=== PATIENT | male | born 1960 | race Caucasian/White ===

== ENCOUNTER 2016-11-16 19:09 | Emergency (ER) | payer OTHER ==
[2016-11-16 19:20] VITALS: BP 159/98; PULSE 90; TEMP 98.2; BMI 33.2
--- NOTE | 2016-11-16 19:21 | PDOC ---
Rapid Medical Evaluation Time Seen by Provider: 11/16/16 19:19 Medical Evaluation: Allergies Allergy/AdvReac Type Severity Reaction Status Date / Time No Known Allergies Allergy Verified 08/29/15 06:17 11/16/16 19:19 56 year old male IDDM, HTN, chronic back pain presents for refill of insulin. Has not had it for 3 days, but denies any complaints. Does not have insurance so presents here. -V/s unremarkable. -FSBG -To FT for further evaluation
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
[2016-11-16] MEDS ORDERED: INSULIN REGULAR HUMAN 100 UNITS/ML *VIAL SQ ONE (19:58)
[2016-11-16] MEDS ORDERED: traMADol HCL 50 MG TABLET PO ONE (19:59)
[2016-11-16] MEDS ORDERED: INSULIN REGULAR HUMAN 100 UNITS/ML *VIAL ONE (20:15)
[2016-11-16] MEDS ORDERED: INSULIN DETEMIR 100 UNITS/ML MDV SQ ONE ×2 (20:16→20:19)
[2016-11-16] MEDS ORDERED: traMADol HCL 50 MG TABLET ONE (20:28)
== END 2016-11-16 21:02 | disposition home or self-care (01) ==
LOC: JERFT 19:09
PROC: 3E013VG Introduction of Insulin into Subcutaneous Tissue, Percutaneous Approach (ICD-10-PCS; principal; 2016-11-16)
PROC: 3E013VG Introduction of Insulin into Subcutaneous Tissue, Percutaneous Approach (ICD-10-PCS; 2016-11-16)
DX: E11.65 Type 2 diabetes mellitus with hyperglycemia (principal); Z79.4 Long term (current) use of insulin; I10 Essential (primary) hypertension; M54.5 Low back pain; G89.29 Other chronic pain; V43.92XS Unspecified car occupant injured in collision with other type car in traffic accident, sequela
CPT/HCPCS: 99281-25

== ENCOUNTER 2016-11-20 20:18 | Emergency (ER) | payer SELFPAY ==
[2016-11-20 20:34] VITALS: BP 150/84; PULSE 96; TEMP 98.2; BMI 33.9
--- NOTE | 2016-11-20 20:53 | PDOC ---
History of Present Illness - General Chief Complaint: RX Refill Stated Complaint: RX REFILL Time Seen by Provider: 11/20/16 20:35 History Source: Patient - History of Present Illness Timing/Duration: other Associated Symptoms: denies: chest pain, diaphoresis, fever/chills, headaches, malaise, nausea/vomiting, shortness of breath, weakness Past History - Past Medical History Allergies/Adverse Reactions: Allergies Allergy/AdvReac Type Severity Reaction Status Date / Time No Known Allergies Allergy Verified 11/20/16 20:30 Home Medications: Ambulatory Orders Tamsulosin HCl 0.4 mg PO HS 10/25/12 Zolpidem Tartrate [Ambien] 10 mg PO HS 10/25/12 Pantoprazole Sodium [Protonix] 40 mg PO DAILY #30 tablet. 08/29/15 Tramadol HCl [Ultram] 50 mg PO Q6H PRN #15 tablet MDD 4 11/16/16 Insulin Glargine,Hum.rec.anlog [Lantus Solostar PEN -] 20 units SQ BID #10 ml Diabetes: Yes HTN: Yes - Immunization History Immunization Up to Date: Yes - Psycho/Social/Smoking Cessation Hx Anxiety: No Suicidal Ideation: No Smoking Status: No Smoking History: Never smoked Have you smoked in the past 12 months: No Number of Cigarettes Smoked Daily: 0 Hx Alcohol Use: No Drug/Substance Use Hx: No Review of Systems - Review of Systems Constitutional: No: Chills, Fever, Malaise Respiratory: No: Shortness of Breath Cardiac (ROS): No: Chest Pain ABD/GI: No: Nausea, Vomiting : No: Frequency Neurological: No: Headache, Dizziness *Physical Exam - Vital Signs Last Vital Signs Temp Pulse Resp BP Pulse Ox 98.2 F 96 H 18 150/84 97 11/20/16 20:33 11/20/16 20:33 11/20/16 20:33 11/20/16 20:33 11/20/16 20:33 - Physical Exam General Appearance: Yes: Appropriately Dressed. No: Apparent Distress HEENT: positive: Normal Voice Neck: positive: Supple Respiratory/Chest: negative: Respiratory Distress Integumentary: positive: Dry, Warm Neurologic: positive: Fully Oriented, Alert, Normal Mood/Affect Medical Decision Making - Medical Decision Making 11/20/16 20:48 56 yo M, h/o IDDM, HTN, chronic back pain, here for refill of his insulin. Patient was seen in ED 5 days ago for same. Had run out of his insulin 3 days prior. Had not been complaining of any symptoms then, but fingerstick in ED was found to be in the 300s. Patient was given a dose of insulin and told to follow-up with his doctor. Patient states he does have a primary doctor at [facility] but that the issue is that he does not have insurance and the [facility] uses is charging him $400 for medications which he cannot afford. Patient states he was able to speak to a staff member in [facility] located in the [place] and that pharmacist is willing to give patient medication for $100 so patient requesting prescription sent to that pharmacy. States he has a socially responsible investment adviser in the community who is currently assisting him w/ insurance. Patient not complaining of any medical complaints at this time and appears well. Currently talking on his cell phone. Fingerstick in ED is 302. Dc in stable conditions with prescription sent to pharmacy. Pt to continue f/u with his PMD 11/20/16 21:14 11/20/16 21:16 *DC/Admit/Observation/Transfer Diagnosis at time of Disposition: Medication refill - Discharge Dispostion Disposition: HOME Condition at time of disposition: Good - Prescriptions Prescriptions: Insulin Glargine,Hum.rec.anlog [Lantus Solostar PEN -] 20 units SQ BID #10 ml - Patient Instructions Additional Instructions: Please take insulin as prescribed and follow-up with your PMD
[2016-11-20] MEDS ORDERED: INSULIN REGULAR HUMAN 100 UNITS/ML *VIAL SQ ONE (21:17)
[2016-11-20] MEDS ORDERED: INSULIN (NOVOLOG) ASPART 100 UNITS/ML 10ML VIAL ONE (21:25)
[2016-11-21] MEDS ORDERED: Insulin (LOG) Aspart 100 UNITS/ML VIAL SQ ONE (21:23)
== END 2016-11-20 21:43 | disposition home or self-care (01) ==
LOC: JERFT 20:18
DX: Z76.0 Encounter for issue of repeat prescription (principal)
CPT/HCPCS: 99281-25

== ENCOUNTER 2017-07-14 16:44 | Emergency (ER) | payer OTHER ==
[2017-07-14 16:59] VITALS: BP 152/85; PULSE 86; TEMP 98.5; BMI 33.2
--- NOTE | 2017-07-14 17:30 | PDOC ---
History of Present Illness - General Chief Complaint: RX Refill Stated Complaint: RX REFILL Time Seen by Provider: 07/14/17 17:02 History Source: Patient Exam Limitations: No Limitations - History of Present Illness Initial Comments: 07/14/17 17:26 Patient is a 56-year-old male with chronic insomnia, diabetes, hypertension presents emergency department requesting refill for his Ambien. Patient states that he goes to the clinic and his doctors currently on medication he took his last pill last evening and states that he does not feel good if he does not take it has been taken the medication for 15 years. Patient denies any chest pain, no shortness of breath, no other complaints Allergies: No known allergies Medications: See medication list Family History: Non-contributory Social History: Denies smoking, alcohol use, or IVDU Review of Systems GENERAL/CONSTITUTIONAL: [No fever or chills. No weakness. No weight change.] HEAD, EYES, EARS, NOSE AND THROAT: [No change in vision. No ear pain or discharge. No sore throat. ] CARDIOVASCULAR: [No chest pain or shortness of breath.] RESPIRATORY: [No cough, wheezing, or hemoptysis.] GASTROINTESTINAL: [No nausea, vomiting, diarrhea or constipation. No rectal bleeding.] GENITOURINARY: [No dysuria, frequency, or change in urination.] MUSCULOSKELETAL: [No joint or muscle swelling or pain. No neck or back pain.] SKIN : [No rash or easy bruising.] NEUROLOGIC: [No headache, vertigo, loss of consciousness, or loss of sensation.] Physical Exam: GENERAL: [The patient is awake, alert, and fully oriented, in no acute distress. ] LUNGS: [Breath sounds equal, clear to auscultation bilaterally. No wheezes, and no crackles.] HEART: [Regular rate and rhythm, normal S1 and S2 without murmur, rub or gallop. ] MUSCULOSKELETAL: [Normal range of motion, no edema. No clubbing or cyanosis. No cords, erythema, or tenderness. No CVA Tenderness with fist.] NEUROLOGICAL: [Cranial nerves II through XII grossly intact. Normal speech, normal gait.] SKIN: [Warm, Dry, normal turgor, no rashes or lesions noted.] Past History - Past Medical History Allergies/Adverse Reactions: Allergies Allergy/AdvReac Type Severity Reaction Status Date / Time No Known Allergies Allergy Verified 07/14/17 16:59 Home Medications: Ambulatory Orders Tamsulosin HCl 0.4 mg PO HS 10/25/12 Zolpidem Tartrate [Ambien] 10 mg PO HS 10/25/12 Pantoprazole Sodium [Protonix] 40 mg PO DAILY #30 tablet. 08/29/15 Tramadol HCl [Ultram] 50 mg PO Q6H PRN #15 tablet MDD 4 11/16/16 Insulin Glargine,Hum.rec.anlog [Lantus Solostar PEN -] 20 units SQ BID #10 ml Zolpidem Tartrate 10 mg PO HS #8 tablet MDD 1 07/14/17 COPD: No Diabetes: Yes HTN: Yes - Immunization History Immunization Up to Date: Yes - Suicide/Smoking/Psychosocial Hx Smoking Status: No Smoking History: Never smoked Have you smoked in the past 12 months: No Number of Cigarettes Smoked Daily: 0 Hx Alcohol Use: No Drug/Substance Use Hx: No *Physical Exam - Vital Signs Last Vital Signs Temp Pulse Resp BP Pulse Ox 98.5 F 86 20 152/85 97 07/14/17 16:56 07/14/17 16:56 07/14/17 16:56 07/14/17 16:56 07/14/17 16:56 Medical Decision Making - Medical Decision Making 07/14/17 17:38 A/P: Patient here for refill for his Ambien [place] that [place] he has requested a doctor in [place] states he does not want to go down to the [place] anymore. I have given him information regarding [facility]. I have given him 1 weeks (up with them to follow-up in [place]. *DC/Admit/Observation/Transfer Diagnosis at time of Disposition: Medication refill - Discharge Dispostion Disposition: HOME Condition at time of disposition: Good Admit: No - Prescriptions Prescriptions: Zolpidem Tartrate 10 mg PO HS #8 tablet MDD 1 - Referrals Referrals: [facility] [Provider Group] - Patient Instructions Additional Instructions: Please follow up at the clinic for further renewals - Post Discharge Activity
== END 2017-07-14 17:37 | disposition home or self-care (01) ==
LOC: JERFT 16:44
DX: G47.00 Insomnia, unspecified (principal); E11.9 Type 2 diabetes mellitus without complications; Z79.4 Long term (current) use of insulin
CPT/HCPCS: 99281-25

== ENCOUNTER 2018-01-07 19:56 | Emergency (ER) | payer OTHER ==
--- NOTE | 2018-01-07 20:00 | PDOC ---
Rapid Medical Evaluation Time Seen by Provider: 01/07/18 19:57 Medical Evaluation: Allergies Allergy/AdvReac Type Severity Reaction Status Date / Time No Known Allergies Allergy Verified 07/14/17 16:59 01/07/18 19:57 I have performed a brief in-person evaluation of this patient. The patient presents with a chief complaint of: fever, sore throat and cough for 5 days Pertinent physical exam findings: Oropharynx clear without erythema or exudates. Lungs CTAB. I have ordered the following: nothing The patient will proceed to the ED for further evaluation. Discharge Disposition - Diagnosis URI (upper respiratory infection) - Referrals - Patient Instructions - Post Discharge Activity
[2018-01-07 20:01] VITALS: BP 157/80; PULSE 94; TEMP 98.7; BMI 34.5
--- NOTE | 2018-01-07 20:58 | PDOC ---
History of Present Illness - General Chief Complaint: Shortness of Breath Stated Complaint: SOB Time Seen by Provider: 01/07/18 19:57 - History of Present Illness Initial Comments: 57-year-old male past medical history of insulin dependent diabetes dyslipidemia and hypertension, presents for evaluation of sore throat and subjective fever at home 3 days. He also complains of sore throat. 01/07/18 20:55 Past History - Past Medical History Allergies/Adverse Reactions: Allergies Allergy/AdvReac Type Severity Reaction Status Date / Time No Known Allergies Allergy Verified 07/14/17 16:59 Home Medications: Ambulatory Orders Tamsulosin HCl 0.4 mg PO HS 10/25/12 Zolpidem Tartrate [Ambien] 10 mg PO HS 10/25/12 Pantoprazole Sodium [Protonix] 40 mg PO DAILY #30 tablet. 08/29/15 Tramadol HCl [Ultram] 50 mg PO Q6H PRN #15 tablet MDD 4 11/16/16 Insulin Glargine,Hum.rec.anlog [Lantus Solostar PEN -] 20 units SQ BID #10 ml Zolpidem Tartrate 10 mg PO HS #8 tablet MDD 1 07/14/17 Amox-Tr/K Cl [Augmentin - 875Mg Tablet] 1 tab PO BID #20 tablet 01/07/18 COPD: No Diabetes: Yes HTN: Yes - Immunization History Immunization Up to Date: Yes - Suicide/Smoking/Psychosocial Hx Smoking Status: No Smoking History: Never smoked Have you smoked in the past 12 months: No Number of Cigarettes Smoked Daily: 0 Hx Alcohol Use: No Drug/Substance Use Hx: No Review of Systems - Review of Systems Comments:: GENERAL/CONSTITUTIONAL: [+ fever no chills. No weakness. No weight change.] HEAD, EYES, EARS, NOSE AND THROAT: [No change in vision. No ear pain or discharge. + sore throat.] CARDIOVASCULAR: [No chest pain or shortness of breath.] RESPIRATORY: [+ cough, no wheezing, or hemoptysis.] GASTROINTESTINAL: [No nausea, vomiting, diarrhea or constipation. No rectal bleeding.] GENITOURINARY: [No dysuria, frequency, or change in urination.] MUSCULOSKELETAL: [No joint or muscle swelling or pain. No neck or back pain.] SKIN AND BREASTS: [No rash or easy bruising.] NEUROLOGIC: [No headache, vertigo, loss of consciousness, or loss of sensation.] PSYCHIATRIC: [No depression or anxiety.] ENDOCRINE: [No increased thirst. No abnormal weight change.] HEMATOLOGIC/LYMPHATIC: [No anemia, easy bleeding, or history of blood clots.] ALLERGIC/IMMUNOLOGIC: [No hives or skin allergy. No latex allergy.] 01/07/18 20:57 HEENTM: Yes: Nose Congestion *Physical Exam - Vital Signs Last Vital Signs Temp Pulse Resp BP Pulse Ox 98.7 F 94 H 20 157/80 98 01/07/18 19:59 01/07/18 19:59 01/07/18 19:59 01/07/18 19:59 01/07/18 19:59 - Physical Exam Comments: GENERAL: [The patient is awake, alert, and fully oriented, in no acute distress. ] HEAD: [Normal with no signs of trauma.] EYES: [Pupils equal, round and reactive to light, extraocular movements intact, sclera anicteric, conjunctiva clear.] ENT: [Ears normal, nares njected, oropharynx is injected. Moist mucous membranes.] NECK: [Normal range of motion, supple without lymphadenopathy, JVD, or masses.] LUNGS: [Breath sounds equal, clear to auscultation bilaterally. No wheezes, and no crackles.] HEART: [Regular rate and rhythm, normal S1 and S2 without murmur, rub or gallop. ] ABDOMEN: [Soft, nontender, normoactive bowel sounds. No guarding, no rebound. No masses.] EXTREMITIES: [Normal range of motion, no edema. No clubbing or cyanosis. No cords, erythema, or tenderness.] NEUROLOGICAL: [Cranial nerves II through XII grossly intact. Normal speech, normal gait.] PSYCH: [Normal mood, normal affect.] SKIN: [Warm, Dry, normal turgor, no rashes or lesions noted.] 01/07/18 20:57 01/07/18 21:33 Medical Decision Making - Medical Decision Making 57-year-old diabetic with sinus congestion and pressure subjective fever at home negative strep test and ER culture was sent. I will treat him for sinusitis 01/07/18 21:33 *DC/Admit/Observation/Transfer Diagnosis at time of Disposition: URI (upper respiratory infection), Sinusitis - Discharge Dispostion Disposition: HOME Condition at time of disposition: Stable Decision to Admit order: No - Referrals Referrals: Akhil Mcgowan MD [Staff Physician] - - Patient Instructions Printed Discharge Instructions: Sinusitis, DI for Sinusitis Additional Instructions: I'm treating you for a sinus infection because of your diabetes and her fever at home but you've report. Please return to the emergency room if her symptoms go unresolved or worsen prior to follow-up. You can follow up with your primary care provider or if you do not have one I provided a provider for you. We've given you the first dose of antibiotics in the emergency room this evening you may parts picker the prescription tomorrow and start the pills tomorrow - Post Discharge Activity
[2018-01-07] MEDS ORDERED: AMOX TR/POT CLAV 875MG/125MG TABLETS (FP) PO ONE (21:36)
[2018-01-07] MEDS ORDERED: AMOX TR/POT CLAV 875MG/125MG TABLETS (FP) ONE (21:40)
== END 2018-01-07 21:43 | disposition home or self-care (01) ==
LOC: JERFT 19:56
DX: J06.9 Acute upper respiratory infection, unspecified (principal); I10 Essential (primary) hypertension; E11.9 Type 2 diabetes mellitus without complications; Z79.4 Long term (current) use of insulin; E78.00 Pure hypercholesterolemia, unspecified
CPT/HCPCS: 87070; 87430; 99281-25

== ENCOUNTER 2018-04-30 12:41 | Emergency (ER) | payer OTHER ==
[2018-04-30 13:09] VITALS: TEMP 98.4; BMI 33.9
--- NOTE | 2018-04-30 13:30 | PDOC ---
History of Present Illness - General Chief Complaint: Overdose Stated Complaint: INGESTION Time Seen by Provider: 04/30/18 13:29 - History of Present Illness Initial Comments: 04/30/18 14:42 The patient is a 57 year old male with a history of HTN, DM who presents for evaluation following an ingestion. The patient is accompanied by family who assist in providing the history. They note that the patient was grabbing to drink cough suppressant when he accidentally grabbed and drank Vicks Vapor nebulizer solution prompting his presentation to the ED for further evaluation. The patient denies any pain, but reports nausea. He otherwise denies fevers, chills, chest pain, SOB, vomiting, abdominal pain, numbness, tingling, weakness , or changes with urination or bowel movements. Past History - Past Medical History Allergies/Adverse Reactions: Allergies Allergy/AdvReac Type Severity Reaction Status Date / Time No Known Allergies Allergy Verified 04/30/18 13:09 Home Medications: Ambulatory Orders Insulin Glargine,Hum.rec.anlog [Basaglar Kwikpen U-100] 20 unit SQ HS 04/30/18 Insulin Glargine,Hum.rec.anlog [Basaglar Kwikpen U-100] 60 unit SQ DAILY Lisinopril [Prinivil] 10 mg PO DAILY 04/30/18 Tramadol HCl [Ultram] 50 mg PO DAILY PRN 04/30/18 COPD: No Diabetes: Yes HTN: Yes - Immunization History Immunization Up to Date: Yes - Suicide/Smoking/Psychosocial Hx Smoking Status: No Smoking History: Never smoked Have you smoked in the past 12 months: No Number of Cigarettes Smoked Daily: 0 Hx Alcohol Use: No Drug/Substance Use Hx: No Review of Systems - Review of Systems Comments:: 04/30/18 14:46 Constitutional: No fevers, chills, fatigue, malaise HEENT: No Rhinorrhea, nasal congestion, visual changes Cardiovascular: No chest pain, syncope, palpitations, lightheadedness Respiratory: No Cough, SOB, Hemoptysis, Gastrointestinal: Nausea, No Abdominal pain, Vomiting, Constipation, Diarrhea, Melena Genitourinary: No Dysuria, Frequency, Urgency, Hesitancy, Hematuria, Flank pain Musculoskeletal: No Myalgia, arthralgia Skin: No rashes, itching, bruising, pallor Neurologic: No Headache, Dizziness, Numbness, Weakness, or Tingling Psychiatric: No Hallucinations. No SI or HI *Physical Exam - Vital Signs Last Vital Signs Temp Pulse Resp BP Pulse Ox 98.4 F 95 H 18 142/79 99 04/30/18 13:06 04/30/18 13:06 04/30/18 13:06 04/30/18 13:06 04/30/18 13:06 - Physical Exam Comments: 04/30/18 14:47 General Appearance: Nourished. No Apparent Distress HEENT: EOMI, PRANAV. No Pharyngeal Erythema, Tonsillar Exudate, Tonsillar Erythema Neck: No Cervical Lymphadenopathy Respiratory/Chest: Lungs Clear, Normal Breath Sounds. No Crackles, Rales, Rhonchi, Wheezing Cardiovascular: Regular Rhythm, Regular Rate. No Murmur, Gallops, Rubs Gastrointestinal/Abdominal: Normal Bowel Sounds, Soft. No Guarding, Rebound, Tenderness Musculoskeletal: No CVA Tenderness Extremity: Normal Capillary Refill Integumentary: Normal Color, Dry, Warm Neurologic: costume rental clerk II-XII NML intact, Fully Oriented, Alert, Normal Mood/Affect, Normal Response, Motor Strength 5/5. Normal Finger to Nose and Heel to [facility] ED Treatment Course - LABORATORY CBC & Chemistry Diagram: 04/30/18 13:43 04/30/18 13:43 Medical Decision Making - Medical Decision Making 04/30/18 14:47 The patient is a 57 year old male with a history of HTN, DM who presents for evaluation following an ingestion. The case was discussed with poison control who recommended obtaining lab work up and observing the patient for at least 6 hours to monitor for seizures or other sequela from the patient's ingestion. We will obtain a cbc, cmp, alcohol level, acetominophen and salycilate level and ekg. We will treat with iv fluids and zofran and continue to monitor and reassess while here in the ED. 04/30/18 20:01 CBC, cmp, toxicology levels are all unremarkable. The patient is more alert and has tolerated PO intake and appears clinically well. We discussed the results and patient's clinical appearance with poison control who are comfortable with discharge. We are comfortable discharging the patient home with primary care provider follow up. We discussed the results, plan, and return precautions with the patient who voiced understanding and is agreeable with the plan. *DC/Admit/Observation/Transfer Diagnosis at time of Disposition: Ingestion of substance Qualifiers: Encounter type: initial encounter Injury intent: accidental or unintentional Qualified Code(s): T65.91XA - Toxic effect of unspecified substance, accidental (unintentional), initial encounter - Discharge Dispostion Disposition: HOME Condition at time of disposition: Stable Decision to Admit order: No - Referrals Referrals: Bev Holliday MD [Primary Care Provider] - - Patient Instructions Printed Discharge Instructions: DI for Accidental Ingestion -- Adult Additional Instructions: Please return to the ER if you experience concerning or worsening symptoms including worsening pain, weakness, or seizures. Your lab results were normal here in the ER. Please call to schedule a follow up appointment with your primary care provider within 2-3 days to discuss your ER visit and further management of your symptoms. Print Language: HEBREW - Post Discharge Activity
[2018-04-30] MEDS ORDERED: SODIUM CHLORIDE 1,000 ML IV STA (13:53)
--- NOTE | 2018-04-30 13:56 | PDOC ---
Attending Attestation - Resident Resident Name: BetsyYong - ED Attending Attestation I have performed the following: I have examined & evaluated the patient, The case was reviewed & discussed with the resident, I agree w/resident's findings & plan, Exceptions are as noted - HPI HPI: 05/01/18 15:03 Mr Pk Drummond is a 57 yo M h/o HTN, DM who presents for evaluation following accidental ingestion of Vicks Vapor Rub Nebulizer solution. (+) nausea Denies pain Denies fevers, chills, chest pain, SOB Pt does not think he aspirated - Physicial Exam PE: 05/01/18 15:05 General Appearance: Nourished. No Apparent Distress, somnolent, minimally responsive to verbal stimuli Neck: No Nuchal rigidity Respiratory/Chest: Lungs Clear, Normal Breath Sounds. No Crackles, Rales, Rhonchi, Wheezing Cardiovascular: Regular Rhythm, Regular Rate. No Murmur, Gallops, Rubs Gastrointestinal/Abdominal: Normal Bowel Sounds, Soft. No Guarding, Rebound, Tenderness Extremity: Normal Capillary Refill Integumentary: Normal Color, Dry, Warm - Medical Decision Making 05/01/18 15:06 57 yo M s/p accidental ingestion Poison controlled consulted, recommend supportive care and close monitoring for 6 hours Labs sent EKG performed Pt observed and ultimately discharged stating that he felt better
[2018-04-30 13:57] LABS: BASO % 0.7 % (0-2.0); HEMATOCRIT 42.9 % (35.4-49); HEMOGLOBIN 14.1 GM/dL (11.7-16.9); LYMPH % 9.2 % (8-40); MCHC 32.9 g/dl (32.0-35.9); MEAN CELL VOLUME 85.2 fl (80-96); MEAN PLT VOLUME 7.4 fl (7.5-11.1); MONO % 4.3 % (3.8-10.2); NEUT % 81.8 % (42.8-82.8); PLATELET COUNT 484 K/MM3 (134-434); RBC 5.03 M/mm3 (4.00-5.60); RDW 14.2 % (11.9-15.9); WHITE BLOOD COUNT 13.9 K/mm3 (4.0-10.0)
[2018-04-30 14:24] LABS: ALBUMIN 3.4 g/dl (3.4-5.0); ALK PHOS 87 U/L (45-117); ANION GAP 11 MMOL/L (8-16); BILIRUBIN,TOTAL 0.6 mg/dL (0.2-1.0); BLOOD UREA NITROGEN 18 mg/dL (7-18); CALCIUM 8.8 mg/dL (8.5-10.1); CHLORIDE 102 mmol/L (98-107); CO2 28 mmol/L (21-32); CREATININE 0.8 mg/dL (0.7-1.3); GLUCOSE,RANDOM 245 mg/dL (74-106); POTASSIUM 4.1 mmol/L (3.5-5.1); SGOT/AST 10 U/L (15-37); SGPT/ALT 20 U/L (12-78); SODIUM 141 mmol/L (136-145); TOT PROT 7.1 g/dl (6.4-8.2)
[2018-04-30 19:10] VITALS: BP 138/65; PULSE 80
--- NOTE | 2018-05-01 12:39 | EKG ---
Test Reason : Blood Pressure : / mmHG Vent. Rate : 090 BPM Atrial Rate : 090 BPM P-R Int : 140 ms QRS Dur : 090 ms QT Int : 378 ms P-R-T Axes : 048 017 182 degrees QTc Int : 462 ms NORMAL SINUS RHYTHM T WAVE ABNORMALITY, CONSIDER INFEROLATERAL ISCHEMIA PROLONGED QT ABNORMAL ECG WHEN COMPARED WITH ECG OF 25-OCT-2012 18:26, INVERTED T WAVES HAVE REPLACED NONSPECIFIC T WAVE ABNORMALITY IN LATERAL LEADS Confirmed by JOEY JACOBS, ALEX ([id number]) on 05/01/2018 12:39:38 PM Referred By: Confirmed By:ALEX COOK MD
== END 2018-04-30 19:11 | disposition home or self-care (01) ==
LOC: JER 12:41
PROC: 3E0337Z Introduction of Electrolytic and Water Balance Substance into Peripheral Vein, Percutaneous Approach (ICD-10-PCS; principal; 2018-04-30)
DX: T50.901A Poisoning by unspecified drugs, medicaments and biological substances, accidental (unintentional), initial encounter (principal); I10 Essential (primary) hypertension; E11.9 Type 2 diabetes mellitus without complications; Z79.4 Long term (current) use of insulin
CPT/HCPCS: 36415; 80053; 80307; 85025; 93005; 93010; 96360; 99284-25; J7030

== ENCOUNTER 2018-10-28 18:19 | Emergency (ER) | payer OTHER ==
--- NOTE | 2018-10-28 18:26 | PDOC ---
Rapid Medical Evaluation Time Seen by Provider: 10/28/18 18:21 Medical Evaluation: Allergies Allergy/AdvReac Type Severity Reaction Status Date / Time No Known Allergies Allergy Verified 04/30/18 13:09 10/28/18 18:22 I have performed a brief in-person evaluation of this patient. The patient presents with a chief complaint of: requesting Rx for Ambien Pertinent physical exam findings: PE-WNL I have ordered the following: nothing The patient will proceed to the ED for further evaluation. Discharge Disposition - Diagnosis Medication refill - Referrals - Patient Instructions - Post Discharge Activity
[2018-10-28 18:29] VITALS: BP 158/82; PULSE 80; TEMP 98.3; BMI 33.9
--- NOTE | 2018-10-28 19:28 | PDOC ---
History of Present Illness - General Chief Complaint: RX Refill Stated Complaint: WOULD LIKE SOME SLEEPING PILLS Time Seen by Provider: 10/28/18 18:21 History Source: Patient Exam Limitations: Clinical Condition - History of Present Illness Initial Comments: 10/28/18 19:31 Patient with history of insomnia present for referral of this Ambien medication. Patient reported his PCP supposed to call her medication but went to the pharmacy and medication was not available in the pharmacy. Patient reported he called PCPs office today for refill and was told PCP sent medication to pharmacy. Patient did not call back to primary cast primary care office was already closed today. Denies any other symptoms Timing/Duration: intermittent Past History - Past Medical History Allergies/Adverse Reactions: Allergies Allergy/AdvReac Type Severity Reaction Status Date / Time No Known Allergies Allergy Verified 04/30/18 13:09 Home Medications: Ambulatory Orders Insulin Glargine,Hum.rec.anlog [Basaglar Kwikpen U-100] 20 unit SQ HS 04/30/18 Insulin Glargine,Hum.rec.anlog [Basaglar Kwikpen U-100] 60 unit SQ DAILY Lisinopril [Prinivil] 10 mg PO DAILY 04/30/18 Tramadol HCl [Ultram] 50 mg PO DAILY PRN 04/30/18 Zolpidem Tartrate [Ambien] 10 mg PO HS 5 Days #5 tablet MDD 1 10/28/18 COPD: No Diabetes: Yes HTN: Yes - Immunization History Immunization Up to Date: Yes - Suicide/Smoking/Psychosocial Hx Smoking Status: No Smoking History: Never smoked Have you smoked in the past 12 months: No Number of Cigarettes Smoked Daily: 0 Hx Alcohol Use: No Drug/Substance Use Hx: No Review of Systems - Review of Systems Able to Perform ROS?: Yes Is the patient limited [place] proficient: No Constitutional: No: Symptoms Reported, Weakness HEENTM: No: Symptoms Reported Respiratory: No: Symptoms reported Cardiac (ROS): No: Symptoms Reported ABD/GI: No: Symptoms Reported : No: Symptoms Reported Musculoskeletal: No: Symptoms Reported, Joint Stiffness Integumentary: No: Symptoms Reported *Physical Exam - Vital Signs Last Vital Signs Temp Pulse Resp BP Pulse Ox 98.3 F 80 16 158/82 99 10/28/18 18:25 10/28/18 18:25 10/28/18 18:25 10/28/18 18:25 10/28/18 18:25 - Physical Exam General Appearance: Yes: Nourished, Appropriately Dressed. No: Apparent Distress HEENT: positive: Normal ENT Inspection, Pharynx Normal Neck: positive: Supple Respiratory/Chest: negative: Respiratory Distress, Accessory Muscle Use Cardiovascular: positive: Regular Rhythm, Regular Rate Moderate Sedation - Procedure Monitoring Vital Signs: Procedure Monitoring Vital Signs Temperature 98.3 F 10/28/18 18:25 Pulse Rate 80 10/28/18 18:25 Respiratory Rate 16 10/28/18 18:25 Blood Pressure 158/82 10/28/18 18:25 O2 Sat by Pulse Oximetry (%) 99 10/28/18 18:25 Medical Decision Making - Medical Decision Making 10/28/18 19:33 Patient with history of insomnia present for refill of his Ambien medication due to medication ran out and medication send by PCP not in pharmacy. Pharmacy was contacted and report patient last become medication month ago and does not have any new refill in the pharmacy. 5 day worth of medications sent to patient pharmacy and patient advised to contact PCP back again to have medications sent for him. Patient voiced understanding and will contact her PCP tomorrow. *DC/Admit/Observation/Transfer Diagnosis at time of Disposition: Medication refill Insomnia Qualifiers: Insomnia type: unspecified Qualified Code(s): G47.00 - Insomnia, unspecified - Discharge Dispostion Disposition: HOME Condition at time of disposition: Stable Decision to Admit order: No - Prescriptions Prescriptions: Zolpidem Tartrate [Ambien] 10 mg PO HS 5 Days #5 tablet MDD 1 - Referrals - Patient Instructions Additional Instructions: I have sent 5 days worth of your medication refill. Follow-up with primary care to get rest of the medication before 5 days. - Post Discharge Activity
== END 2018-10-28 19:39 | disposition home or self-care (01) ==
LOC: JERFT 18:19
DX: G47.00 Insomnia, unspecified (principal); I10 Essential (primary) hypertension; E11.9 Type 2 diabetes mellitus without complications; Z79.4 Long term (current) use of insulin
CPT/HCPCS: 99281-25

== ENCOUNTER 2018-12-07 21:43 | Observation (INO) | payer OTHER ==
--- NOTE | 2018-12-07 21:54 | PDOC ---
Attending Attestation - HPI HPI: 12/07/18 23:35 The patient is a 58 year old male with a past medical history of insulin dependent diabetes and HTN brought in by EMS today for evaluation of lethargy. The patient reports that he mixed 35 units of long acting insulin, 5 hour energy , and viagra at approximately 7:30 PM today. Patients reports that 40 minutes prior to arrival, she found the patient acting lethargic and called EMS. As per EMS, fire department was first on scene and gave unknown amount of glucose. Blood glucose was 136 as per EMS. Patient denies intentional overdose. Patient denies headache, lightheadedness. Denies fever, chills. Denies chest pain, shortness of breath. Denies nausea, vomiting, diarrhea, abdominal pain. Allergies: NKA <Yong Salazar - Last Filed: 12/07/18 23:35> - Resident Resident Name: Stu Alexandre - ED Attending Attestation I have performed the following: I have examined & evaluated the patient, The case was reviewed & discussed with the resident, I agree w/resident's findings & plan - Physicial Exam PE: 12/08/18 00:44 Agree with resident exam - Medical Decision Making 12/07/18 23:29 WBC is elevated. Labs normal 12/07/18 23:29 Pt has a hx of accidental ingestions in the past. 12/08/18 02:56 Patient Name: PEDRO BEJARANO THIS IS A PRELIMINARY REPORT FROM [facility] DATE OF SERVICE: 2018-12-08 01:52:53 IMAGES: 141 EXAM: HEAD CT WITHOUT CONTRAST HISTORY: Syncope COMPARISON: None. FINDINGS: The ventricular system is midline and nondilated. The sulcal pattern is normal for the patient's age. Early small vessel ischemic changes are noted. There is no bleed , mass, extra-axial fluid collection or mass effect. No skull fracture or skull lesion is identified. The visualized paranasal sinuses and mastoid air cells are clear. IMPRESSION: No acute pathology. <Bere Macias - Last Filed: 12/08/18 02:56> Heart Score/ECG Review - ECG Intrepretation Rhythm: Regular Rhythm - Strum Strum: Normal - P and MN Prominent R with upright T in V1 (true posterior MD): No Delta Wave(s) Present: No WPW: No - ST and T Early Repolarization: No Non Specific ST-T Wave changes: Yes Flattened T Waves: Yes - ECG Impressions Normal ECG: No Ischemic Changes: Yes <Bere Macias - Last Filed: 12/08/18 02:56> Attestations - Attestations 12/07/18 23:35 Documentation prepared by HUNTER Oglesby, acting as medical videographer for Bere Macias MD. <Yong Salazar - Last Filed: 12/07/18 23:35>
[2018-12-07] MEDS ORDERED: SODIUM CHLORIDE 1,000 ML IV STA ×2 (22:04→23:21)
--- NOTE | 2018-12-07 22:14 | PDOC ---
History of Present Illness - General Stated Complaint: SYNCOPY Time Seen by Provider: 12/07/18 21:53 - History of Present Illness Initial Comments: 12/07/18 22:06 58 yo M with h/o HTN, HLD, IDDM, who p/w syncope. Patient and son at bedside to assist in report. 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 Reports he believes he administered 35 units Insulin Glargine at approximately 730 PM. Patient then experienced episodes of mumbling per , and lethargic appearing, non responsive to verbal stimuli, while sitting on chair. Family denies fall, or trauma. H/o prior ingestion/poison-tox control Vicks vapor rub 05/15.Patient denies intentional overdose, SI, HI, hallucinations. States he was attempting to have intercourse with prior to ingestion, and inuslin admin. EMS reports BS ~136 , following fire department administering unknown amount of glucose to pt. Patient denies SHARPE, vision change, palpitations, cough, wheezing, orthopena, PND , leg swelling/pain, N/V, F,C, CP, SOB, urinary complaints, hematuria, BPR, abdominal pain, diarrhea, constipation, sensory changes. PMHx: as noted above ROS: as noted SHx: Denies IVDA, Etoh Allergies: NKDA Past History - Past Medical History Allergies/Adverse Reactions: Allergies Allergy/AdvReac Type Severity Reaction Status Date / Time No Known Allergies Allergy Verified 04/30/18 13:09 Home Medications: Ambulatory Orders Insulin Glargine,Hum.rec.anlog [Basaglar Kwikpen U-100] 20 unit SQ HS 04/30/18 Insulin Glargine,Hum.rec.anlog [Basaglar Kwikpen U-100] 60 unit SQ DAILY Lisinopril [Prinivil] 10 mg PO DAILY 04/30/18 Tramadol HCl [Ultram] 50 mg PO DAILY PRN 04/30/18 Zolpidem Tartrate [Ambien] 10 mg PO HS 5 Days #5 tablet MDD 1 10/28/18 COPD: No Diabetes: Yes HTN: Yes - Immunization History Immunization Up to Date: Yes - Suicide/Smoking/Psychosocial Hx Smoking Status: No Smoking History: Never smoked Have you smoked in the past 12 months: No Number of Cigarettes Smoked Daily: 0 Hx Alcohol Use: No Drug/Substance Use Hx: No Review of Systems - Review of Systems Comments:: 12/07/18 22:19 GENERAL/CONSTITUTIONAL: No fever or chills. No weakness. HEAD, EYES, EARS, NOSE AND THROAT: No change in vision. No ear pain or discharge. No sore throat. CARDIOVASCULAR: No chest pain or shortness of breath RESPIRATORY: No cough, wheezing, or hemoptysis. GASTROINTESTINAL: No nausea, vomiting, diarrhea or constipation. GENITOURINARY: No dysuria, frequency, or change in urination. MUSCULOSKELETAL: No joint or muscle swelling or pain. No neck or back pain. SKIN: No rash NEUROLOGIC: + lightheadedness. No headache, vertigo, loss of consciousness, or change in strength/sensation. ENDOCRINE: No increased thirst. No abnormal weight change HEMATOLOGIC/LYMPHATIC: No anemia, easy bleeding, or history of blood clots. ALLERGIC/IMMUNOLOGIC: No hives or skin allergy. *Physical Exam - Physical Exam Comments: 12/07/18 22:19 GENERAL:alert, somnolent/drowsy, arousable, responsive to verbal stimuli, and able to follow commands, oreinted x 3. HEAD: No signs of trauma, normocephalic, atraumatic EYES: PERRLA, EOMI, sclera anicteric, conjunctiva clear ENT: Auricles normal inspection, hearing grossly normal, nares patent, oropharynx clear without exudates. Moist mucosa NECK: Normal ROM, supple, no lymphadenopathy, JVD, or masses LUNGS: No distress, speaks full sentences, clear to auscultation bilaterally HEART: Regular rate and rhythm, normal S1 and S2, no murmurs, rubs or gallops, peripheral pulses normal and equal bilaterally. ABDOMEN: Soft, nontender, normoactive bowel sounds. No guarding, no rebound. No masses EXTREMITIES : Normal inspection, Normal range of motion, no edema. No clubbing or cyanosis. NEUROLOGICAL: Cranial nerves II through XII grossly intact. Normal speech, no focal sensorimotor deficits SKIN: Warm, Dry, normal turgor, no rashes or lesions noted Heart Score/ECG Review - History History: Slightly suspicious - Electrocardiogram EKG: Non specific repolarization disturbance - Age Age: 45-65 - Risk Factors Risk Factors Heart Score: Yes Hx Hypercholesterolemia, Yes Hx Hypertension, Yes Hx Diabetes, Yes Smoking History, Yes Positive family hx of cardiac disease Based on the list above the patient has:: >/=3 risk factors or Hx atherosclerotic disease - Troponin Troponin: </= normal limit - Score Heart Score - Total: 4 ED Treatment Course - LABORATORY CBC & Chemistry Diagram: 12/07/18 22:40 12/07/18 22:40 - RADIOLOGY Radiology Studies Ordered: Category Date Time Status HEAD CT WITHOUT CONTRAST [CT] Stat CT Scan 12/07/18 22:04 Ordered Medical Decision Making - Medical Decision Making 12/07/18 22:16 58 yo M with h/o HTN, HLD, IDDM, BIBA with syncopal event 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 EMS reports BS ~136, following fire department administering unknown amount of glucose to pt. Patient alert, drowsy, arousable , responsive to verbal stimuli, and able to follow commands. Absent neuro deficits on physical exam. Denies Intentional overdose, SI, HI, hallucinations. palpitations, N/V, F,C, CP, SOB, urinary complaints, hematuria, BPR, abdominal pain, diarrhea, constipation, sensory changes. Will assess for VBI/TIA, cardiac dysarrythmias, hypoglycemia, electrolyte abnml, metabolic and toxic derangements , acid-base disturbances, infection. 12/07/18 22:19 ED Course: 12/07/18 23:31 Plan to admit for unknown long acting insulin ingestion, AMS 12/08/18 00:04 Laboratory Tests 12/07/18 12/07/18 12/07/18 22:40 22:40 22:40 WBC 15.7 H Random Glucose 228 H Troponin I < 0.02 12/08/18 01:00 EKG: NSR with TWI V5-V6, I AvL. Absent Q waves. Nml interval duration and axis. Nml R wave progression. Similar to interval EKG 04/2018. 12/08/18 02:57 CTH: Unremarkable 12/08/18 03:[address] palma. Admit to med/surg. *DC/Admit/Observation/Transfer Diagnosis at time of Disposition: Syncope and collapse - Discharge Dispostion Condition at time of disposition: Stable Decision to Admit order: Yes - Referrals - Patient Instructions Printed Discharge Instructions: DI for Syncope in Adults (Fainting) Additional Instructions: Please return to the emergency department with any new or worsening symptoms or concerns. Please follow up with your primary care physician within 72 hours. - Post Discharge Activity
[2018-12-07 22:48] LABS: BASO % 0.6 % (0-2.0); EOS % 2.4 % (0-4.5); HEMATOCRIT 41.1 % (35.4-49); HEMOGLOBIN 13.7 GM/dL (11.7-16.9); LYMPH % 7.7 % (8-40); MCH 28.2 pg (25.7-33.7); MCHC 33.3 g/dl (32.0-35.9); MEAN CELL VOLUME 84.6 fl (80-96); MEAN PLT VOLUME 7.6 fl (7.5-11.1); MONO % 4.1 % (3.8-10.2); NEUT % 85.2 % (42.8-82.8); PLATELET COUNT 464 K/MM3 (134-434); RBC 4.86 M/mm3 (4.00-5.60); WHITE BLOOD COUNT 15.7 K/mm3 (4.0-10.0)
[2018-12-07 23:10] LABS: ALBUMIN 3.4 g/dl (3.4-5.0); ALK PHOS 79 U/L (45-117); ANION GAP 7 MMOL/L (8-16); BILIRUBIN,TOTAL 0.4 mg/dL (0.2-1); BLOOD UREA NITROGEN 18 mg/dL (7-18); CALCIUM 8.3 mg/dL (8.5-10.1); CHLORIDE 102 mmol/L (98-107); CO2 27 mmol/L (21-32); CREATININE 0.9 mg/dL (0.55-1.3); GLUCOSE,RANDOM 228 mg/dL (74-106); POTASSIUM 4.2 mmol/L (3.5-5.1); SGOT/AST 10 U/L (15-37); SGPT/ALT 22 U/L (13-61); SODIUM 136 mmol/L (136-145); TOT PROT 6.7 g/dl (6.4-8.2)
[2018-12-07 23:56] VITALS: BMI 35.2
[2018-12-08 01:36] LABS: PH,URINE 6.5 (5.0-8.0); URINE APPEARANCE CLEAR; URINE BILIRUBIN NEGATIVE (NEGATIVE); URINE COLOR YELLOW; URINE GLUCOSE (UA) 1+ (NEGATIVE); URINE KETONE NEGATIVE (NEGATIVE); URINE LEUK ESTERASE NEGATIVE (NEGATIVE); URINE NITRITE NEGATIVE (NEGATIVE); URINE PROTEIN NEGATIVE (NEGATIVE); URINE UROBILINOGEN 0.2 mg/dL (0.2-1.0)
[2018-12-08 01:48] LABS: COCAINE, UR NEGATIVE ng/ml (CUTOFF=300); METHADONE, UR NEGATIVE ng/ml (CUTOFF=300); OPIATES, URI NEGATIVE ng/ml (CUTOFF=300); PHENCYCLIDINE,URINE NEGATIVE ng/ml (CUTOFF=25); URINE AMPHETAMINES NEGATIVE ng/ml (CUTOFF=500); URINE BARBITURATES NEGATIVE ng/ml (CUTOFF=200); URINE BENZODIAZEPINES NEGATIVE ng/ml (CUTOFF=200)
--- NOTE | 2018-12-08 04:38 | HP ---
CHIEF COMPLAINT: syncope x 1 day PCP: HISTORY OF PRESENT ILLNESS: Pt is a 58 yo M with h/o HTN, HLD, BPH, IDDM (on glargine), insomnia, chronic back pain (on naproxen/tramadol), who p/w syncope at about 7.30pm. [place] 6am, taking ambien for insomnia , then going to bed. He woke up at about 4.30pm. He then took a little soup, took tamsolusin, lisinopril, tramadol, 5hr energy and viagra and 35U of glargine. After he had sex, just before going out for diner he slumped into his massage chair. He reports he had been feeling dizzy after having sexual relations and it persisted after he got off the bed. He did not hit his head, did not convulse, did not bite his tongue or have fecal or urinary incontinence. Per the patient, EMS checked his blood glucose which was low and gave him glucose. He felt revived and came to the ED. Patient reports that despite being on insulin, he does not check his blood glucose regularly. He also uses the viagra twice a week. He takes 5hr energy to counter the drowsiness he feels after using ambien for insomnia. No prior fevers, no chest pain, no dizziness, no suicidal ideation. Patient said he was unaware of the interactions between the medications. He thinks his error worsened because of the timing of the insulin relative to the time he could get to the food. He has not had similar experience in the past ER course was notable for: (1) glu- 228, EKG- slightly improved from prior with HR-82bpm, NSR, inferiorlat ischemic changes, nl axis, normal intervals, QTC-436, normal R wave progression (2)initial trop -negative, WBC-15 (3) CT head-ve, Utox- negative, UA-ve, CXR-negative Recent Travel: PAST MEDICAL HISTORY: HTN, HLD, BPH, IDDM, insulin (on ambien) PAST SURGICAL HISTORY: Social History: Smoking:denies Alcohol:occ wine Drugs: Denies Family History: Lives with and children, does not work (on disability) Allergies No Known Allergies Allergy (Verified 04/30/18 13:09) HOME MEDICATIONS: Home Medications Medication Instructions Recorded Insulin Glargine,Hum.rec.anlog 20 unit SQ HS 04/30/18 [Basaglar Kwikpen U-100] Insulin Glargine,Hum.rec.anlog 60 unit SQ DAILY 04/30/18 [Basaglar Kwikpen U-100] Lisinopril [Prinivil] 10 mg PO DAILY 04/30/18 Tramadol HCl [Ultram] 50 mg PO DAILY PRN 04/30/18 Zolpidem Tartrate [Ambien] 10 mg PO HS 5 Days #5 tablet MDD 1 10/28/18 REVIEW OF SYSTEMS CONSTITUTIONAL: Absent: fever, chills, diaphoresis, generalized weakness, malaise, loss of appetite, weight change HEENT: Absent: rhinorrhea, nasal congestion, throat pain, throat swelling, difficulty swallowing, mouth swelling, ear pain, eye pain, visual changes CARDIOVASCULAR: Absent: chest pain, syncope+, palpitations, irregular heart rate, lightheadedness, peripheral edema RESPIRATORY: Absent: cough, shortness of breath, dyspnea with exertion, orthopnea, wheezing, stridor, hemoptysis GASTROINTESTINAL: Absent: abdominal pain, abdominal distension, nausea, vomiting, diarrhea, constipation, melena, hematochezia GENITOURINARY: Absent: dysuria, frequency, urgency, hesitancy, hematuria, flank pain, genital pain MUSCULOSKELETAL: Absent: myalgia, arthralgia, joint swelling, back pain, neck pain SKIN: Absent: rash, itching, pallor HEMATOLOGIC/IMMUNOLOGIC: Absent: easy bleeding, easy bruising, lymphadenopathy, frequent infections ENDOCRINE: Absent: unexplained weight gain, unexplained weight loss, heat intolerance, cold intolerance NEUROLOGIC: Absent: headache, focal weakness or paresthesias, dizziness, unsteady gait, seizure, mental status changes, bladder or bowel incontinence PSYCHIATRIC: Absent: anxiety, depression, suicidal or homicidal ideation, hallucinations. PHYSICAL EXAMINATION Vital Signs - 24 hr 12/07/18 12/08/18 21:55 00:40 Temperature 98.3 F 97.5 F L Pulse Rate 79 Pulse Rate [ 78 Right Radial] Respiratory 18 Rate Blood Pressure 165/82 Blood Pressure 144/69 [Right Arm] O2 Sat by Pulse 95 97 Oximetry (%) GENERAL: Awake, alert, and fully oriented, in no acute distress. HEAD: Normal with no signs of trauma. EYES: Pupils equal, round and reactive to light, extraocular movements intact, EARS, NOSE, THROAT: oropharynx clear without exudates. Moist mucous membranes. NECK: Normal range of motion, supple LUNGS: Breath sounds equal, clear to auscultation bilaterally. No wheezes, and no crackles. HEART: Regular rate and rhythm, normal S1 and S2 ABDOMEN: Soft, nontender, obese, normoactive bowel sounds, MUSCULOSKELETAL: Normal range of motion at all joints. Mild tenderness lower back LOWER EXTREMITIES: 2+ pulses, warm, well-perfused. No calf tenderness. No peripheral edema. NEUROLOGICAL: Cranial nerves II-XII intact. Normal speech. Moves all extremities, normal tone and reflexes, no facial droop PSYCHIATRIC: Cooperative. Good eye contact. Appropriate mood and affect. SKIN: Warm, dry, normal turgor, no rashes or lesions noted, normal capillary refill. CBC, BMP 12/08/18 06:30 12/08/18 06:30 Laboratory Results - last 24 hr 12/07/18 12/07/18 12/07/18 22:40 22:40 22:40 WBC 15.7 H RBC 4.86 Hgb 13.7 Hct 41.1 MCV 84.6 MCH 28.2 MCHC 33.3 RDW 15.0 Plt Count 464 H MPV 7.6 Absolute Neuts (auto) 13.3 H Neutrophils % 85.2 H Lymphocytes % 7.7 L Monocytes % 4.1 Eosinophils % 2.4 Basophils % 0.6 Nucleated RBC % 0 Sodium 136 Potassium 4.2 Chloride 102 Carbon Dioxide 27 Anion Gap 7 L BUN 18 Creatinine 0.9 Creat Clearance w eGFR 86.08 POC Glucometer Random Glucose 228 H Calcium 8.3 L Total Bilirubin 0.4 AST 10 L ALT 22 Alkaline Phosphatase 79 Creatine Kinase 142 Troponin I < 0.02 Total Protein 6.7 Albumin 3.4 Urine Color Urine Appearance Urine pH Ur Specific [place] Urine Protein Urine Glucose (UA) Urine Ketones Urine Blood Urine Nitrite Urine Bilirubin Urine Urobilinogen Ur Leukocyte Esterase Salicylates < 1.7 L Opiates Screen Methadone Screen Acetaminophen < 2.0 L Barbiturate Screen Phencyclidine Screen Ur Amphetamines Screen MDMA (Ecstasy) Screen Benzodiazepines Screen Cocaine Screen U Marijuana (THC) Screen 12/07/18 12/07/18 12/08/18 23:03 23:05 00:45 WBC RBC Hgb Hct MCV MCH MCHC RDW Plt Count MPV Absolute Neuts (auto) Neutrophils % Lymphocytes % Monocytes % Eosinophils % Basophils % Nucleated RBC % Sodium Potassium Chloride Carbon Dioxide Anion Gap BUN Creatinine Creat Clearance w eGFR POC Glucometer 386 274 Random Glucose Calcium Total Bilirubin AST ALT Alkaline Phosphatase Creatine Kinase Troponin I Total Protein Albumin Urine Color Yellow Urine Appearance Clear Urine pH 6.5 D Ur Specific [place] 1.007 L Urine Protein Negative Urine Glucose (UA) 1+ H Urine Ketones Negative Urine Blood Negative Urine Nitrite Negative Urine Bilirubin Negative Urine Urobilinogen 0.2 Ur Leukocyte Esterase Negative Salicylates Opiates Screen Methadone Screen Acetaminophen Barbiturate Screen Phencyclidine Screen Ur Amphetamines Screen MDMA (Ecstasy) Screen Benzodiazepines Screen Cocaine Screen U Marijuana (THC) Screen 12/08/18 00:45 WBC RBC Hgb Hct MCV MCH MCHC RDW Plt Count MPV Absolute Neuts (auto) Neutrophils % Lymphocytes % Monocytes % Eosinophils % Basophils % Nucleated RBC % Sodium Potassium Chloride Carbon Dioxide Anion Gap BUN Creatinine Creat Clearance w eGFR POC Glucometer Random Glucose Calcium Total Bilirubin AST ALT Alkaline Phosphatase Creatine Kinase Troponin I Total Protein Albumin Urine Color Urine Appearance Urine pH Ur Specific [place] Urine Protein Urine Glucose (UA) Urine Ketones Urine Blood Urine Nitrite Urine Bilirubin Urine Urobilinogen Ur Leukocyte Esterase Salicylates Opiates Screen Negative Methadone Screen Negative Acetaminophen Barbiturate Screen Negative Phencyclidine Screen Negative Ur Amphetamines Screen Negative MDMA (Ecstasy) Screen Negative Benzodiazepines Screen Negative Cocaine Screen Negative U Marijuana (THC) Screen Negative Ambulatory Orders Insulin Glargine,Hum.rec.anlog [Basaglar Kwikpen U-100] 20 unit SQ HS 04/30/18 Insulin Glargine,Hum.rec.anlog [Basaglar Kwikpen U-100] 60 unit SQ DAILY Lisinopril [Prinivil] 10 mg PO DAILY 04/30/18 Tramadol HCl [Ultram] 50 mg PO DAILY PRN 04/30/18 Zolpidem Tartrate [Ambien] 10 mg PO HS 5 Days #5 tablet MDD 1 10/28/18 Active Medications Enoxaparin Sodium (Lovenox -) 40 mg SQ DAILY [facility] Insulin Aspart (Novolog Vial Sliding Scale -) 1 vial SQ ACHS [facility]; Protocol ASSESSMENT/PLAN: Pt is a 58 yo M with h/o HTN, HLD, BPH, IDDM (on glargine), insomnia (on ambien) ,chronic back pain (on naproxen/tramadol), who p/w syncope at about 7.30pm. #Syncope Etiology unclear, could be a combination of factors Could be vasovagal as it occurred preceded by dizziness and after sex Could be due to medication interaction resulting in hypovolemia due to vasodilation Could be cardiogenc- pt is DM on insulin,prior ischemic changes on EKG, no prior ECHO, no prior stress test noted Pt reported at rest, while on the bed which did not resolve after he stood up, no chest pain or SOB prior Polypharmacy with likely drug interactions patient received 2L NS fluids in ED, orthostatic vitals-pending EKG- no new ischemic changes, no arrythmias noted Cardiac monitoring Cardiology consult ECHO Trend trops TSH Lipid profile #Leukocytosis Unclear etiology Could be reactive Ua-ve No acute pathology on CXR No hx of fevers prior Will monitor off antibiotics #IDDM Patient reports taking glargine 60Uam and 20u pm Said to have taken 35U with delayed meal this evening prior to syncopal episodes No regular home BGMs Reported to have been hypoglycemic and received glucose prior to ED arrival BGM Q1H Diet- sodium restricted/DM ISS ACHS DM education reinforcement Pt combined 5hr energy with glargine without food and could have had rebound hypoglycemia #HTN Pt took lisinopril and tamsolusin with viagra, so could have had hypotension Orthostatic BP pending May resume home meds, if hypertensive #HLD Unsure if on statin Medrec in am-no response from paharmacy overnight #BPH On tamsolusin Pt educated on combining with viagra #Insomnia Pt says he takes ambien to sleep after [place] and takes 5 hour energy to stay awake while he drives Counselled pt- may need to discuss reduction of ambien dose if still drowsy also to avoid driving when drowsy SE of 5 hour energy on DM #FEN Received NS PO hydration as needed Monitor lytes, replete as needed Sodium- restricted/DM diet #PPx Lovenox 40mg sq daily #Dispo Tele obs Visit type - Emergency Visit Emergency Visit: Yes ED Registration Date: 12/07/18 Care time: The patient presented to the Emergency Department on the above date and was hospitalized for further evaluation of their emergent condition. - New Patient This patient is new to me today: Yes Date on this admission: 12/08/18 - Critical Care Critical Care patient: No
--- NOTE | 2018-12-08 05:41 | PN ---
Teaching Attending Note Name of Resident: Sandra Bryan ATTENDING PHYSICIAN STATEMENT I saw and evaluated the patient. I reviewed the resident's note and discussed the case with the resident. I agree with the resident's findings and plan as documented. SUBJECTIVE: OBJECTIVE: ASSESSMENT AND PLAN: this is a 58 y/o man that presented to the hospital for lightheadedness according to the patient he felt that episode after intercourse, he stayed in bed but still felt dizzy, and stood up walked to see if he feel better however the patient had to sit down, he denied any LOC, CAI, chest pain, chest tightness or palpitation stated he is feeling better now. patient is an insulin dependent, stated that he has taken "viagra" before, drank some 5 hour energy drink before the episode plan admit to tele obs cardio consult IVF hydration glycemic control
[2018-12-08 06:28] VITALS: TEMP 99.9
[2018-12-08 07:08] LABS: BASO % 0.5 % (0-2.0); EOS % 4.7 % (0-4.5); HEMATOCRIT 40.1 % (35.4-49); HEMOGLOBIN 13.2 GM/dL (11.7-16.9); LYMPH % 23.5 % (8-40); MCH 27.8 pg (25.7-33.7); MEAN CELL VOLUME 84.2 fl (80-96); MEAN PLT VOLUME 7.7 fl (7.5-11.1); MONO % 5.2 % (3.8-10.2); NEUT % 66.1 % (42.8-82.8); PLATELET COUNT 487 K/MM3 (134-434); RBC 4.77 M/mm3 (4.00-5.60); RDW 15.3 % (11.9-15.9); WHITE BLOOD COUNT 11.4 K/mm3 (4.0-10.0)
[2018-12-08 07:32] LABS: INR 1.03 (0.83-1.09); PROTHROMBIN TIME (PATIENT) 12.1 SEC (9.7-13.0)
[2018-12-08 07:34] LABS: ACTIVATED PTT 30.4 SECONDS (25.2-36.5)
[2018-12-08 07:45] LABS: ALK PHOS 75 U/L (45-117); ANION GAP 8 MMOL/L (8-16); BILIRUBIN,TOTAL 0.4 mg/dL (0.2-1); BLOOD UREA NITROGEN 12 mg/dL (7-18); CALCIUM 7.7 mg/dL (8.5-10.1); CHLORIDE 105 mmol/L (98-107); CHOLESTEROL 200 mg/dL (50-200); CO2 27 mmol/L (21-32); CREATININE 0.9 mg/dL (0.55-1.3); GLUCOSE,RANDOM 232 mg/dL (74-106); HDL CHOLESTEROL 44 mg/dL (40-60); PHOSPHOROUS 3.3 mg/dL (2.5-4.9); POTASSIUM 4.4 mmol/L (3.5-5.1); SGOT/AST 9 U/L (15-37); SGPT/ALT 17 U/L (13-61); SODIUM 139 mmol/L (136-145); TOT PROT 6.2 g/dl (6.4-8.2); TRIGLYCERIDES 187 mg/dL (0-150)
[2018-12-08] MEDS: INSULIN SLIDING SCALE (NOVOLOG) 1 VIAL SQ SCH ×2 (07:49→08:02)
[2018-12-08] MEDS ORDERED: INSULIN REGULAR HUMAN 100 UNITS/ML *VIAL ONE (07:58)
[2018-12-08] MEDS ORDERED: SODIUM CHLORIDE 1,000 ML IV SCH (08:15)
[2018-12-08] MEDS ORDERED: LISINOPRIL 10 MG TABLET (FP) PO SCH (10:00)
[2018-12-08] MEDS ORDERED: ENOXAPARIN NA (PORCINE) 40 MG/0.4 ML DISP.SYRIN SQ SCH (10:00)
--- NOTE | 2018-12-08 10:04 | CON.CARD ---
Consult Consult Specialty:: Cardiology Referred by:: Hospitalist Reason for Consultation:: Cardiac evaluation - History of Present Illness Chief Complaint: Syncope and dizziness History of Present Illness: Patient is a 58 year old male of descent with underlying history of HTN , hypercholesterolemia, DM, chronic back pain and insomnia who presents with syncope after taking Ambien during the day, fell asleep, then upon awakening, he took Tamsulosin, Lisinopril, Tramadol, Energy drink and Viagra along with Insulin, engaged in sexual activity, afterwards felt dizzy and then had a syncopal episode. He did not suffer any visible injuries. He denies chest pain, SOB or palpitations. He denies paroxysmal nocturnal dyspnea or orthopnea. He denies fever or chills. He denies nausea, vomiting, diarrhea or abdominal pain. He denies headache or lightheadedness. Currently, he is awake and alert and is without any of the above symptoms. - History Source History Provided By: Patient, Medical Record Limitations to Obtaining History: No Limitations - Past Medical History Cardio/Vascular: Yes: HTN, Hyperlipdemia Endocrine: Yes: Diabetes Mellitus - Past Surgical History Past Surgical History: Yes: None - Alcohol/Substance Use Hx Alcohol Use: No - Smoking History Smoking history: Never smoked Have you smoked in the past 12 months: No Aproximately how many cigarettes per day: 0 Home Medications - Allergies Allergies/Adverse Reactions: Allergies Allergy/AdvReac Type Severity Reaction Status Date / Time No Known Allergies Allergy Verified 04/30/18 13:09 - Home Medications Home Medications: Ambulatory Orders Insulin Glargine,Hum.rec.anlog [Basaglar Kwikpen U-100] 20 unit SQ HS 04/30/18 Insulin Glargine,Hum.rec.anlog [Basaglar Kwikpen U-100] 60 unit SQ DAILY Lisinopril [Prinivil] 10 mg PO DAILY 04/30/18 Tramadol HCl [Ultram] 50 mg PO DAILY PRN 04/30/18 Zolpidem Tartrate [Ambien] 10 mg PO HS 5 Days #5 tablet MDD 1 10/28/18 Family Disease History - Family Disease History Other Family History: DM Review of Systems - Review of Systems Constitutional: denies: Chills, Fever Cardiovascular: denies: Chest Pain, Palpitations, Shortness of Breath Respiratory: denies: Cough, Hemoptysis, Orthopnea, PND, SOB, SOB on Exertion Gastrointestinal: denies: Abdominal Pain, Constipation, Diarrhea, Melena, Nausea , Rectal Bleeding, Vomiting Genitourinary: denies: Dysuria, Hematuria Musculoskeletal: reports: Back Pain. denies: Joint Pain Neurological: reports: Dizziness, Syncope. denies: Headache, Seizure Vital Signs: Vital Signs Temperature 99.9 F H 12/08/18 06:28 Pulse Rate 91 H 12/08/18 06:28 Respiratory Rate 18 12/08/18 06:00 Blood Pressure 152/79 12/08/18 06:28 O2 Sat by Pulse Oximetry (%) 97 12/08/18 08:29 Eyes: Yes: PERRL HENT: Yes: Atraumatic Neck: Yes: Supple Respiratory: Yes: CTA Bilaterally Gastrointestinal: Yes: Normal Bowel Sounds, Soft. No: Tenderness Cardiovascular: Yes: Regular Rate and Rhythm JVD: No Carotid Bruit: No PMI: Non-Displaced Heart Sounds: Yes: S1, S2 Murmur: No: Systolic Murmur, Diastolic Murmur Edema: No - Other Data Labs, Other Data: CBC, BMP 12/08/18 06:30 12/08/18 06:30 INR, PTT INR 1.03 (0.83-1.09) 12/08/18 06:30 Troponin, BNP 12/07/18 12/08/18 22:40 06:30 Troponin I < 0.02 < 0.02 Sinus rhythm with T abnormality in lateral leads Imaging - Results Chest X-ray: Pending Cat Scan: Pending (Head CT) EKG: Report Reviewed Problem List - Problems (1) HTN (hypertension) Code(s): I10 - ESSENTIAL (PRIMARY) HYPERTENSION (2) Hypercholesterolemia Code(s): E78.00 - PURE HYPERCHOLESTEROLEMIA, UNSPECIFIED (3) Syncope and collapse Code(s): R55 - SYNCOPE AND COLLAPSE (4) Insomnia Code(s): G47.00 - INSOMNIA, UNSPECIFIED Qualifiers: Insomnia type: unspecified Qualified Code(s): G47.00 - Insomnia, unspecified Assessment/Plan 1. ? Syncope due to poly medicine including Zolpidem 2. HTN 3. Hypercholesterolemia 4. DM 5. Insomnia 6. BPH 7. Leukocytosis ? etiology PLAN: 1. Troponins are negative 2. Continue Lisinopril 3. Continue DM management 4. Further cardiac work up can be done as outpatient including echocardiography and stress testing 5. Avoid use of poly pharmacy. 6. May be discharged home cardiac stand point Patient has an appointment with his PMD tomorrow Sergo Deleon MD
[2018-12-08 12:15] VITALS: BP 157/80; PULSE 88
--- NOTE | 2018-12-08 15:23 | PN ---
Progress Note (short form) - Note Progress Note: SUBJECTIVE: Feels great, lightheadedness subsided. No chest pain/palpitations/ SOB. OBJECTIVE: Afebrile, Hemodynamically Stable Last Vital Signs Temp Pulse Resp BP Pulse Ox 99.9 F H 88 22 H 157/80 97 12/08/18 06:28 12/08/18 10:00 12/08/18 10:00 12/08/18 10:00 12/08/18 10:00 HEENT - Atrauamtic, Normocephalic. Heart - S1, S2, RRR Lungs - clear to auscultation Abdomen - soft, non-tender. Bowel Sounds normal. Extrmities mild edema. No calf tenderness. Laboratory Results - last 24 hr 12/07/18 12/07/18 12/07/18 22:40 22:40 22:40 WBC 15.7 H RBC 4.86 Hgb 13.7 Hct 41.1 MCV 84.6 MCH 28.2 MCHC 33.3 RDW 15.0 Plt Count 464 H MPV 7.6 Absolute Neuts (auto) 13.3 H Neutrophils % 85.2 H Lymphocytes % 7.7 L Monocytes % 4.1 Eosinophils % 2.4 Basophils % 0.6 Nucleated RBC % 0 PT with INR INR PTT (Actin FS) Sodium 136 Potassium 4.2 Chloride 102 Carbon Dioxide 27 Anion Gap 7 L BUN 18 Creatinine 0.9 Creat Clearance w eGFR 86.08 POC Glucometer Random Glucose 228 H Calcium 8.3 L Phosphorus Magnesium Total Bilirubin 0.4 AST 10 L ALT 22 Alkaline Phosphatase 79 Creatine Kinase 142 Troponin I < 0.02 Total Protein 6.7 Albumin 3.4 Triglycerides Cholesterol Total LDL Cholesterol HDL Cholesterol TSH Urine Color Urine Appearance Urine pH Ur Specific [place] Urine Protein Urine Glucose (UA) Urine Ketones Urine Blood Urine Nitrite Urine Bilirubin Urine Urobilinogen Ur Leukocyte Esterase Salicylates < 1.7 L Opiates Screen Methadone Screen Acetaminophen < 2.0 L Barbiturate Screen Phencyclidine Screen Ur Amphetamines Screen MDMA (Ecstasy) Screen Benzodiazepines Screen Cocaine Screen U Marijuana (THC) Screen 12/07/18 12/07/18 12/08/18 23:03 23:05 00:45 WBC RBC Hgb Hct MCV MCH MCHC RDW Plt Count MPV Absolute Neuts (auto) Neutrophils % Lymphocytes % Monocytes % Eosinophils % Basophils % Nucleated RBC % PT with INR INR PTT (Actin FS) Sodium Potassium Chloride Carbon Dioxide Anion Gap BUN Creatinine Creat Clearance w eGFR POC Glucometer 386 274 Random Glucose Calcium Phosphorus Magnesium Total Bilirubin AST ALT Alkaline Phosphatase Creatine Kinase Troponin I Total Protein Albumin Triglycerides Cholesterol Total LDL Cholesterol HDL Cholesterol TSH Urine Color Yellow Urine Appearance Clear Urine pH 6.5 D Ur Specific [place] 1.007 L Urine Protein Negative Urine Glucose (UA) 1+ H Urine Ketones Negative Urine Blood Negative Urine Nitrite Negative Urine Bilirubin Negative Urine Urobilinogen 0.2 Ur Leukocyte Esterase Negative Salicylates Opiates Screen Methadone Screen Acetaminophen Barbiturate Screen Phencyclidine Screen Ur Amphetamines Screen MDMA (Ecstasy) Screen Benzodiazepines Screen Cocaine Screen U Marijuana (THC) Screen 12/08/18 12/08/18 12/08/18 00:45 06:13 06:30 WBC 11.4 H RBC 4.77 Hgb 13.2 Hct 40.1 MCV 84.2 MCH 27.8 MCHC 33.0 RDW 15.3 Plt Count 487 H MPV 7.7 Absolute Neuts (auto) 7.5 Neutrophils % 66.1 D Lymphocytes % 23.5 D Monocytes % 5.2 Eosinophils % 4.7 H D Basophils % 0.5 Nucleated RBC % 0 PT with INR INR PTT (Actin FS) Sodium Potassium Chloride Carbon Dioxide Anion Gap BUN Creatinine Creat Clearance w eGFR POC Glucometer 266 Random Glucose Calcium Phosphorus Magnesium Total Bilirubin AST ALT Alkaline Phosphatase Creatine Kinase Troponin I Total Protein Albumin Triglycerides Cholesterol Total LDL Cholesterol HDL Cholesterol TSH Urine Color Urine Appearance Urine pH Ur Specific [place] Urine Protein Urine Glucose (UA) Urine Ketones Urine Blood Urine Nitrite Urine Bilirubin Urine Urobilinogen Ur Leukocyte Esterase Salicylates Opiates Screen Negative Methadone Screen Negative Acetaminophen Barbiturate Screen Negative Phencyclidine Screen Negative Ur Amphetamines Screen Negative MDMA (Ecstasy) Screen Negative Benzodiazepines Screen Negative Cocaine Screen Negative U Marijuana (THC) Screen Negative 12/08/18 12/08/18 12/08/18 06:30 06:30 07:47 WBC RBC Hgb Hct MCV MCH MCHC RDW Plt Count MPV Absolute Neuts (auto) Neutrophils % Lymphocytes % Monocytes % Eosinophils % Basophils % Nucleated RBC % PT with INR 12.10 INR 1.03 PTT (Actin FS) 30.4 Sodium 139 Potassium 4.4 Chloride 105 Carbon Dioxide 27 Anion Gap 8 BUN 12 Creatinine 0.9 Creat Clearance w eGFR 86.08 POC Glucometer 256 Random Glucose 232 H Calcium 7.7 L Phosphorus 3.3 Magnesium 2.0 Total Bilirubin 0.4 AST 9 L ALT 17 Alkaline Phosphatase 75 Creatine Kinase Troponin I < 0.02 Total Protein 6.2 L Albumin 3.0 L Triglycerides 187 H Cholesterol 200 Total LDL Cholesterol 134 H HDL Cholesterol 44 TSH 1.40 Urine Color Urine Appearance Urine pH Ur Specific [place] Urine Protein Urine Glucose (UA) Urine Ketones Urine Blood Urine Nitrite Urine Bilirubin Urine Urobilinogen Ur Leukocyte Esterase Salicylates Opiates Screen Methadone Screen Acetaminophen Barbiturate Screen Phencyclidine Screen Ur Amphetamines Screen MDMA (Ecstasy) Screen Benzodiazepines Screen Cocaine Screen U Marijuana (THC) Screen Home Medications Medication Instructions Recorded Insulin Glargine,Hum.rec.anlog 20 unit SQ HS 04/30/18 [Basaglar Kwikpen U-100] Insulin Glargine,Hum.rec.anlog 60 unit SQ DAILY 04/30/18 [Basaglar Kwikpen U-100] Lisinopril [Prinivil] 10 mg PO DAILY 04/30/18 ASSESSMENT/PLAN: 58 year old female with HTN, HLD, BPH, DM 2, CBP, INsomnia, presents with lightheadedness post intercourse, unclear syncopal/pre-syncopal episode, s/p Ambien, Tamsulosin, Lisinopril, Tramadol, Viagra and 5 hour energy drink prior to intercourse. No associated CP/palps/SOB. Symptoms now resolved. No headache/ visual disturbance/limb numbness or weakness. 1. Lightheadedness/Pre-Syncope sec to Vasovagal episode versus Polypharmacy including Tramadol, Ambien and Viagra - resolved. CT Head reported as normal, official report not yet available. Troponin neg, ECG - nom acute findings. Evaluated by Cardiology - cleared for discharge with Echo and Stress Test as out -patient. Advised to hol Viagra and Tramadol pending follow up with PCP and Cardiology. 2. DM 2 - Will decrease home evening dose Glargine to 50 units given reports that EMS found him with borderline capillary glucose level. 3. Leukocytosis - resolved, likely reactive. No infective focus. 4. HTN - Continue Lisinorpil. Pt took lisinopril and tamsolusin with viagra, so could have had hypotension Orthostatic BP pending May resume home meds, if hypertensive 5. BPH - on Tamsulosin. Medically/Hemodynamically Stable for discharge with out-patient Cardiology follow up for further work-up including Echo and Stress test. Visit type - Emergency Visit Emergency Visit: Yes ED Registration Date: 12/07/18 Care time: The patient presented to the Emergency Department on the above date and was hospitalized for further evaluation of their emergent condition. - New Patient This patient is new to me today: No - Critical Care Critical Care patient: No - Discharge Referral Referred to [facility] Med [facility] No
--- NOTE | 2018-12-08 15:26 | DS ---
Physical Exam: SUBJECTIVE: Feels great, lightheadedness subsided. No chest pain/palpitations/ SOB. OBJECTIVE: Afebrile, Hemodynamically Stable Last Vital Signs Temp Pulse Resp BP Pulse Ox 99.9 F H 88 22 H 157/80 97 12/08/18 06:28 12/08/18 10:00 12/08/18 10:00 12/08/18 10:00 12/08/18 10:00 HEENT - Atrauamtic, Normocephalic. Heart - S1, S2, RRR Lungs - clear to auscultation Abdomen - soft, non-tender. Bowel Sounds normal. Extrmities mild edema. No calf tenderness. Laboratory Results - last 24 hr 12/07/18 12/07/18 12/07/18 22:40 22:40 22:40 WBC 15.7 H RBC 4.86 Hgb 13.7 Hct 41.1 MCV 84.6 MCH 28.2 MCHC 33.3 RDW 15.0 Plt Count 464 H MPV 7.6 Absolute Neuts (auto) 13.3 H Neutrophils % 85.2 H Lymphocytes % 7.7 L Monocytes % 4.1 Eosinophils % 2.4 Basophils % 0.6 Nucleated RBC % 0 PT with INR INR PTT (Actin FS) Sodium 136 Potassium 4.2 Chloride 102 Carbon Dioxide 27 Anion Gap 7 L BUN 18 Creatinine 0.9 Creat Clearance w eGFR 86.08 POC Glucometer Random Glucose 228 H Calcium 8.3 L Phosphorus Magnesium Total Bilirubin 0.4 AST 10 L ALT 22 Alkaline Phosphatase 79 Creatine Kinase 142 Troponin I < 0.02 Total Protein 6.7 Albumin 3.4 Triglycerides Cholesterol Total LDL Cholesterol HDL Cholesterol TSH Urine Color Urine Appearance Urine pH Ur Specific Effort Urine Protein Urine Glucose (UA) Urine Ketones Urine Blood Urine Nitrite Urine Bilirubin Urine Urobilinogen Ur Leukocyte Esterase Salicylates < 1.7 L Opiates Screen Methadone Screen Acetaminophen < 2.0 L Barbiturate Screen Phencyclidine Screen Ur Amphetamines Screen MDMA (Ecstasy) Screen Benzodiazepines Screen Cocaine Screen U Marijuana (THC) Screen 12/07/18 12/07/18 12/08/18 23:03 23:05 00:45 WBC RBC Hgb Hct MCV MCH MCHC RDW Plt Count MPV Absolute Neuts (auto) Neutrophils % Lymphocytes % Monocytes % Eosinophils % Basophils % Nucleated RBC % PT with INR INR PTT (Actin FS) Sodium Potassium Chloride Carbon Dioxide Anion Gap BUN Creatinine Creat Clearance w eGFR POC Glucometer 386 274 Random Glucose Calcium Phosphorus Magnesium Total Bilirubin AST ALT Alkaline Phosphatase Creatine Kinase Troponin I Total Protein Albumin Triglycerides Cholesterol Total LDL Cholesterol HDL Cholesterol TSH Urine Color Yellow Urine Appearance Clear Urine pH 6.5 D Ur Specific Effort 1.007 L Urine Protein Negative Urine Glucose (UA) 1+ H Urine Ketones Negative Urine Blood Negative Urine Nitrite Negative Urine Bilirubin Negative Urine Urobilinogen 0.2 Ur Leukocyte Esterase Negative Salicylates Opiates Screen Methadone Screen Acetaminophen Barbiturate Screen Phencyclidine Screen Ur Amphetamines Screen MDMA (Ecstasy) Screen Benzodiazepines Screen Cocaine Screen U Marijuana (THC) Screen 12/08/18 12/08/18 12/08/18 00:45 06:13 06:30 WBC 11.4 H RBC 4.77 Hgb 13.2 Hct 40.1 MCV 84.2 MCH 27.8 MCHC 33.0 RDW 15.3 Plt Count 487 H MPV 7.7 Absolute Neuts (auto) 7.5 Neutrophils % 66.1 D Lymphocytes % 23.5 D Monocytes % 5.2 Eosinophils % 4.7 H D Basophils % 0.5 Nucleated RBC % 0 PT with INR INR PTT (Actin FS) Sodium Potassium Chloride Carbon Dioxide Anion Gap BUN Creatinine Creat Clearance w eGFR POC Glucometer 266 Random Glucose Calcium Phosphorus Magnesium Total Bilirubin AST ALT Alkaline Phosphatase Creatine Kinase Troponin I Total Protein Albumin Triglycerides Cholesterol Total LDL Cholesterol HDL Cholesterol TSH Urine Color Urine Appearance Urine pH Ur Specific Effort Urine Protein Urine Glucose (UA) Urine Ketones Urine Blood Urine Nitrite Urine Bilirubin Urine Urobilinogen Ur Leukocyte Esterase Salicylates Opiates Screen Negative Methadone Screen Negative Acetaminophen Barbiturate Screen Negative Phencyclidine Screen Negative Ur Amphetamines Screen Negative MDMA (Ecstasy) Screen Negative Benzodiazepines Screen Negative Cocaine Screen Negative U Marijuana (THC) Screen Negative 12/08/18 12/08/18 12/08/18 06:30 06:30 07:47 WBC RBC Hgb Hct MCV MCH MCHC RDW Plt Count MPV Absolute Neuts (auto) Neutrophils % Lymphocytes % Monocytes % Eosinophils % Basophils % Nucleated RBC % PT with INR 12.10 INR 1.03 PTT (Actin FS) 30.4 Sodium 139 Potassium 4.4 Chloride 105 Carbon Dioxide 27 Anion Gap 8 BUN 12 Creatinine 0.9 Creat Clearance w eGFR 86.08 POC Glucometer 256 Random Glucose 232 H Calcium 7.7 L Phosphorus 3.3 Magnesium 2.0 Total Bilirubin 0.4 AST 9 L ALT 17 Alkaline Phosphatase 75 Creatine Kinase Troponin I < 0.02 Total Protein 6.2 L Albumin 3.0 L Triglycerides 187 H Cholesterol 200 Total LDL Cholesterol 134 H HDL Cholesterol 44 TSH 1.40 Urine Color Urine Appearance Urine pH Ur Specific Effort Urine Protein Urine Glucose (UA) Urine Ketones Urine Blood Urine Nitrite Urine Bilirubin Urine Urobilinogen Ur Leukocyte Esterase Salicylates Opiates Screen Methadone Screen Acetaminophen Barbiturate Screen Phencyclidine Screen Ur Amphetamines Screen MDMA (Ecstasy) Screen Benzodiazepines Screen Cocaine Screen U Marijuana (THC) Screen Home Medications Medication Instructions Recorded Insulin Glargine,Hum.rec.anlog 20 unit SQ HS 04/30/18 [Basaglar Kwikpen U-100] Insulin Glargine,Hum.rec.anlog 60 unit SQ DAILY 04/30/18 [Basaglar Kwikpen U-100] Lisinopril [Prinivil] 10 mg PO DAILY 04/30/18 Date of Admission:12/07/18 Date of Discharge: 12/08/18 Minutes to complete discharge: 40 Discharge Summary Reason For Visit: SYNCOPY AND COLLAPSE Hospital Course: 58 year old female with HTN, HLD, BPH, DM 2, CBP, INsomnia, presents with lightheadedness post intercourse, unclear syncopal/pre-syncopal episode, s/p Ambien, Tamsulosin, Lisinopril, Tramadol, Viagra and 5 hour energy drink prior to intercourse. No associated CP/palps/SOB. Symptoms now resolved. No headache/ visual disturbance/limb numbness or weakness. 1. Lightheadedness/Pre-Syncope sec to Vasovagal episode versus Polypharmacy including Tramadol, Ambien and Viagra - resolved. CT Head reported as normal, official report not yet available. Troponin neg, ECG - nom acute findings. Evaluated by Cardiology - cleared for discharge with Echo and Stress Test as out -patient. Advised to hold Viagra and Tramadol pending follow up with PCP and Cardiology. 2. DM 2 - Will decrease home evening dose Glargine to 50 units given reports that EMS found him with borderline capillary glucose level. 3. Leukocytosis - resolved, likely reactive. No infective focus. 4. HTN - Continue Lisinorpil. Pt took lisinopril and tamsolusin with viagra, so could have had hypotension Orthostatic BP pending May resume home meds, if hypertensive 5. BPH - on Tamsulosin. Medically/Hemodynamically Stable for discharge with out-patient Cardiology follow up for further work-up including Echo and Stress test. Condition: Good - Instructions Diet, Activity, Other Instructions: Please avoid excessive mixing of medications, especially ambien with BP meds and Viagra. Please avoid viagra until your out-patient follow up with Cardiology (Dr. Deleon) for Echo and Stress test as recommended. Your sugar was a bit low when it was checked by emergency medical services. Please decrease your Levemir in the evening to 50 Units and monitor your sugars regularly to avoid low sugar readings. Please return to ED or seek medical attention if any further lightheadedness or if you develop any chest pain or palpitations. Referrals: Sergo Deleon MD [Staff Physician] - 1 Week Disposition: HOME - Home Medications Comprehensive Discharge Medication List: Ambulatory Orders Insulin Glargine,Hum.rec.anlog [Basaglar Kwikpen U-100] 20 unit SQ HS 04/30/18 Insulin Glargine,Hum.rec.anlog [Basaglar Kwikpen U-100] 60 unit SQ DAILY Lisinopril [Prinivil] 10 mg PO DAILY 04/30/18 This patient is new to me today: Yes Date on this admission: 12/08/18 Emergency Visit: Yes ED Registration Date: 12/07/18 Care time: The patient presented to the Emergency Department on the above date and was hospitalized for further evaluation of their emergent condition. Critical Care patient: No - Discharge Referral Referred to [facility] No
--- NOTE | 2018-12-09 10:32 | EKG ---
Test Reason : Blood Pressure : / mmHG Vent. Rate : 081 BPM Atrial Rate : 081 BPM P-R Int : 156 ms QRS Dur : 078 ms QT Int : 376 ms P-R-T Axes : 052 001 148 degrees QTc Int : 436 ms NORMAL SINUS RHYTHM T WAVE ABNORMALITY, CONSIDER LATERAL ISCHEMIA ABNORMAL ECG WHEN COMPARED WITH ECG OF 30-APR-2018 15:39, NO SIGNIFICANT CHANGE WAS FOUND Confirmed by ALYCIA JACOBS, MYESHA ([id number]) on 12/09/2018 10:32:16 AM Referred By: Confirmed By:MYESHA TONG MD
== END 2018-12-08 12:16 | disposition home or self-care (01) ==
LOC: JER 21:43 → JERBED 23:38
PROVIDERS: ADMIT Internal Medicine
PROC: 3E0337Z Introduction of Electrolytic and Water Balance Substance into Peripheral Vein, Percutaneous Approach (ICD-10-PCS; principal; 2018-12-07)
PROC: 3E013VG Introduction of Insulin into Subcutaneous Tissue, Percutaneous Approach (ICD-10-PCS; 2018-12-07)
PROC: 3E033GC Introduction of Other Therapeutic Substance into Peripheral Vein, Percutaneous Approach (ICD-10-PCS; 2018-12-07)
DX: R55 Syncope and collapse (principal); I10 Essential (primary) hypertension; E78.5 Hyperlipidemia, unspecified; E11.9 Type 2 diabetes mellitus without complications; M54.9 Dorsalgia, unspecified; G89.29 Other chronic pain; G47.00 Insomnia, unspecified; D72.829 Elevated white blood cell count, unspecified; N40.0 Benign prostatic hyperplasia without lower urinary tract symptoms; Z79.4 Long term (current) use of insulin
CPT/HCPCS: 36415; 70450-TC; 71045-TC-FY; 80053; 80061; 80307; 81003; 82550; 82962; 83721; 83735; 84100; 84443; 84484; 85025; 85610; 85730; 87086; 93005; 93010; 96360; 96361; 96372; 99284-25; G0378; J7030

== ENCOUNTER 2019-06-01 00:03 | Emergency (ER) | payer OTHER ==
[2019-06-01 00:41] VITALS: BP 111/60; PULSE 78; TEMP 97.9; BMI 24.4
--- NOTE | 2019-06-01 00:43 | PDOC ---
History of Present Illness <Vanna Kimbrough Ryannetayla - Last Filed: 06/01/19 00:59> - General History Source: Patient, Spouse - History of Present Illness Initial Comments: 06/01/19 01:12 Mr. Whittington is a 58 y/o man with hx HTN, HLD, IDDM presenting today for doses of his prescribed Zolpidem for his chronic insomnia. He reports that he ran out of his Zolpidem 10mg, but did not realize until tonight after his pharmacy closed. He has a refill already at his pharmacy, but reports that his pharmacy is closed for the weekend and requests a new script or "at least two pills to last until my pharmacy opens". He reports that in the past he received a refill for his zolpidem in the ED. He denies any fevers, chills, change in appetite, change in weight, fatigue, night sweats, chest pain, difficulty breathing, abdominal pain, lightheadedness, vertigo, nausea, vomiting. <Brian Negrete - Last Filed: 06/01/19 01:15> - General Chief Complaint: RX Refill Stated Complaint: TROUBLE SLEEPING Time Seen by Provider: 06/01/19 00:43 Past History <Vanna Kimbrough Lorenzo - Last Filed: 06/01/19 00:59> - Past Medical History Cancer: No Cardiac Disorders: No COPD: No CHF: No Diabetes: Yes HTN: Yes Hypercholesterolemia: Yes - Immunization History Immunization Up to Date: Yes - Psycho Social/Smoking Cessation Hx Smoking Status: No Smoking History: Former smoker Have you smoked in the past 12 months: No Number of Cigarettes Smoked Daily: 0 Information on smoking cessation initiated: No Hx Alcohol Use: No Drug/Substance Use Hx: No <Brian Negrete - Last Filed: 06/01/19 01:15> - Past Medical History Allergies/Adverse Reactions: Allergies Allergy/AdvReac Type Severity Reaction Status Date / Time No Known Allergies Allergy Verified 04/30/18 13:09 Home Medications: Ambulatory Orders Insulin Glargine,Hum.rec.anlog [Basaglar Kwikpen U-100] 20 unit SQ HS 04/30/18 Insulin Glargine,Hum.rec.anlog [Basaglar Kwikpen U-100] 60 unit SQ DAILY Lisinopril [Prinivil] 10 mg PO DAILY 04/30/18 Review of Systems - Review of Systems Able to Perform ROS?: Yes Comments:: 06/01/19 01:12 ROS: GENERAL/CONSTITUTIONAL: No fever or chills. No weakness. HEAD, EYES, EARS, NOSE AND THROAT: No change in vision. No ear pain or discharge. No sore throat. CARDIOVASCULAR: No chest pain or shortness of breath RESPIRATORY: No cough, wheezing, or hemoptysis. GASTROINTESTINAL: No nausea, vomiting, diarrhea or constipation. GENITOURINARY: No dysuria, frequency, or change in urination. MUSCULOSKELETAL: No joint or muscle swelling or pain. No neck or back pain. SKIN: No rash NEUROLOGIC: No headache, vertigo, loss of consciousness, or change in strength/ sensation. ENDOCRINE: No increased thirst. No abnormal weight change HEMATOLOGIC/LYMPHATIC: No anemia, easy bleeding, or history of blood clots. ALLERGIC/IMMUNOLOGIC: No hives or skin allergy. <Brian Negrete - Last Filed: 06/01/19 01:15> *Physical Exam - Vital Signs Last Vital Signs Temp Pulse Resp BP Pulse Ox 97.9 F 78 18 111/60 97 06/01/19 00:35 06/01/19 00:35 06/01/19 00:35 06/01/19 00:35 06/01/19 00:35 <Vanna Kimbrough - Last Filed: 06/01/19 00:59> - Vital Signs Last Vital Signs Temp Pulse Resp BP Pulse Ox 97.9 F 78 18 111/60 97 06/01/19 00:35 06/01/19 00:35 06/01/19 00:35 06/01/19 00:35 06/01/19 00:35 - Physical Exam Comments: 06/01/19 01:12 PE: GENERAL: Awake, alert, and fully oriented, in no acute distress HEAD: No signs of trauma, normocephalic, atraumatic EYES: PERRLA, EOMI, sclera anicteric, conjunctiva clear ENT: Auricles normal inspection, hearing grossly normal, nares patent, oropharynx clear without exudates. Moist mucosa NECK: Normal ROM, supple, no lymphadenopathy, JVD, or masses LUNGS: No distress, speaks full sentences, clear to auscultation bilaterally HEART: Regular rate and rhythm, normal S1 and S2, no murmurs, rubs or gallops, peripheral pulses normal and equal bilaterally. ABDOMEN: Soft, nontender, normoactive bowel sounds. No guarding, no rebound. No masses EXTREMITIES : Normal inspection, Normal range of motion, no edema. No clubbing or cyanosis NEUROLOGICAL: Cranial nerves II through XII grossly intact. Normal speech, normal gait, no focal sensorimotor deficits SKIN: Warm, Dry, normal turgor, no rashes or lesions noted <CandacemiguelitomeenaBrian - Last Filed: 06/01/19 01:15> Medical Decision Making - Medical Decision Making 06/01/19 01:07 58M with hx DM, HLD, HTN presenting for request of 2 doses of zolpidem for his chronic insomnia. Prescription already existing in his pharmacy which closed today until Sunday. Asymptomatic with no complaints at this time. Plan: Zolpidem 10mg x1 Dispo: Home with PCP follow up --- Case discussed with Dr. Kimbrough. Plan for 1x dose of Zolpidem 10 mg. WIll discharge after counseling on methods of controlling insomnia. <PenelopeBrian - Last Filed: 06/01/19 01:15> Discharge - Discharge Information Problems reviewed: Yes - Admission No <Vanna Kimbrough - Last Filed: 06/01/19 00:59> - Discharge Information Problems reviewed: Yes - Admission No <CandacemiguelitomeenaBrian - Last Filed: 06/01/19 01:15> - Discharge Information Clinical Impression/Diagnosis: Insomnia Qualifiers: Insomnia type: unspecified Qualified Code(s): G47.00 - Insomnia, unspecified Condition: Good Disposition: HOME - Patient Discharge Instructions Patient Printed Discharge Instructions: No More Sleepless Nights: Dealing With Insomnia, DI for Insomnia, Mindful Meditation May Reduce Symptoms and Complications of Insomnia, Music May Improve Sleep Quality in Adults with Insomnia Additional Instructions: follow up with primary doctor regarding your insomnia you need to case picker prescription for Ambien you will get one dose only, you can use benadryl, melatonin and non medicine agents to help with sleep return precautions discussed (including but not limited to new or persistent/ worsening symptoms, pain, fevers, or signs of infection, chest pain, respiratory distress, inability to tolerate oral intake, dehydration, syncope, or neurologic changes
[2019-06-01] MEDS ORDERED: ZOLPIDEM TARTRATE 5 MG TABLET PO ONE (00:51)
--- NOTE | 2019-06-01 00:51 | PDOC ---
Attending Attestation - Resident Resident Name: CandaceBrian hinson - ED Attending Attestation I have performed the following: I have examined & evaluated the patient, The case was reviewed & discussed with the resident, I agree w/resident's findings & plan - HPI HPI: 06/01/19 00:51 58 year old female with HTN, HLD, BPH, DM 2, CBP, Insomnia, presenting with request for ambien dose to help him sleep states his pharmacy is closed until sunday, unable to refill his ambien. no acute complaints. 06/01/19 00:57 - Physicial Exam PE: 06/01/19 00:57 Agree with the resident's HPI and PE as documented in the electronic medical record. NAD, well appearing. no respiratory distress. normal color. WWP - Medical Decision Making 06/01/19 00:58 Vital Signs Temp Pulse Resp BP Pulse Ox 97.9 F 78 18 111/60 97 06/01/19 00:35 06/01/19 00:35 06/01/19 00:35 06/01/19 00:35 06/01/19 00:35 VS reviewed, wnl no medical complaints requesting ambien rx. will not give, he has active one and awaiting pharmacy rx and opening hours give one dose now. well appearing expectations relayed, alternative regimen for sleep aid, melatonin, benadryl prn pt adamantly requesting rx meds, will not give additional controlled substance. Pt to be discharged in stable condition. Patient and family made aware of clinical impression, treatment recommendations and disposition plan, return precautions discussed
[2019-06-01] MEDS ORDERED: ZOLPIDEM TARTRATE 5 MG TABLET ONE (01:15)
== END 2019-06-01 01:25 | disposition home or self-care (01) ==
LOC: JER 00:03
DX: G47.00 Insomnia, unspecified (principal); I10 Essential (primary) hypertension; E11.9 Type 2 diabetes mellitus without complications; Z79.4 Long term (current) use of insulin; E78.00 Pure hypercholesterolemia, unspecified
CPT/HCPCS: 99281-25

== ENCOUNTER 2020-06-16 00:19 | Inpatient (IN) | payer OTHER ==
--- OUTSIDE RECORDS SUMMARY | 2020-06-16 00:31 | XMS ---
:1960 Author Organization [facility] Support Name Relationship Address Phone UE Unavailable Unavailable Unavailable MANSOOR BEJARANO SON [address] [place] [address] JENARO BEJARANO [address] [phone] [place] [address] Re-disclosure Warning The records that you are about to access may contain information from federally- assisted alcohol or drug abuse programs. If such information is present, then the following federally mandated warning applies: This information has been disclosed to you from records protected by federal confidentiality rules (42 CFR part 2). The federal rules prohibit you from making any further disclosure of this information unless further disclosure is expressly permitted by the written consent of the person to whom it pertains or as otherwise permitted by 42 CFR part 2. A general authorization for the release of medical or other information is NOT sufficient for this purpose. The Federal rules restrict any use of the information to criminally investigate or prosecute any alcohol or drug abuse patient.The records that you are about to access may contain highly sensitive health information, the redisclosure of which is protected by Article 27-F of the [facility] Public Health law. If you continue you may haveaccess to information: Regarding HIV / AIDS; Provided by facilities licensed or operated by the [facility] Office of Mental Health; or Provided by the [facility] Office for People With Developmental Disabilities. If such information is present, then the following [facility] mandated warning applies: This information has been disclosed to you from confidential records which are protected by state law. State law prohibits you from making any further disclosure of this information without the specific written consent of the person to whom it pertains, or as otherwise permitted by law. Any unauthorized further disclosure in violation of state law may result in a fine or longterm sentence or both. A general authorization for the release of medical or other information is NOT sufficient authorization for further disclosure. Insurance Providers Payer name Policy type Policy ID Covered Covered democrat's Policy P sam / Coverage democrat ID relationship to [employer] type [employer] [place] [id number] SP [id number] [facility] (MEDICARE) [facility] [id number] SP [id number] NON CAP
[2020-06-16 00:33] VITALS: BMI 35.2
--- NOTE | 2020-06-16 00:38 | PDOC ---
History of Present Illness - General Stated Complaint: ALTERED MENTAL STATUS Time Seen by Provider: 06/16/20 00:25 - History of Present Illness Initial Comments: HPI: 06/16/20 00:35 59 yo M PMH HTN, HLD, IDDM, presenting with abdominal distension and pain. Tanzanian speaking only. An hour before ER arrival, began to have constant 10/10 generalized abdominal pain. Tried patrick seltzer and milk of magnesia without relief. States that he has been having constipation for the past two days. Had been having intermittent periumbilical abdominal pain for the last three days as well. Endorses nausea without vomiting. Never happened before. No surgeries in the past. ROS: GENERAL/CONSTITUTIONAL: endorses generalized weakness and malaise. Denies fever, chills, diaphoresis HEAD, EYES, EARS, NOSE AND THROAT: denies rhinorrhea, nasal congestion, throat pain NEUROLOGIC: denies headache, seizure, mental status changes CARDIOVASCULAR: denies chest pain, syncope, palpitations, lightheadedness RESPIRATORY: denies cough, shortness of breath, dyspnea with exertion GASTROINTESTINAL: endorses nausea without vomiting, abdominal pain, abdominal distension, and constipation. Denies diarrhea GENITOURINARY: denies dysuria, frequency, urgency MUSCULOSKELETAL: denies myalgia, arthralgia SKIN: denies rash, itching PE: Gen: well-developed, well-nourished, appears uncomfortable Neuro: AAOX4, CN II-XII intact HEENT: atraumatic, normocephalic Neck: trachea midline, supple CV: regular rate, regular rhythm, no murmurs, rubs, or gallops Pulm: CTA b/l, no wheezing Abd: soft, distended, L middle tenderness, soft and reducible umbilical hernia MSK: full ROM, intact pulses Extr: no edema, no deformities Skin: warm, dry MDM: Concern for constipation v obstruction v intra-abdominal pathology. - CBC, CMP - EKG, trop - CXR - CT abd/pelvis w/ contrast - Ofirmev - reassess 06/16/20 01:56 WBC 13.5, Cr 1.1. Will get CT abd/pelvis with contrast. 06/16/20 03:15 CT abd/pelvis w/ contrast: Advanced left colon and sigmoid diverticulosis. There is one small focal area in the mid portion of the left colon where there are a few pericolonic fatty strands. This area is indeterminate for very early or very mild focal diverticulitis. Correlate with the area of patient's pain. Negative for colitis. Normal appendix visualized. Liver is mildly to moderately enlarged. No definite gallbladder abnormalities. Normal spleen. Normal pancreas. Normal adrenal glands. Normal kidneys urinary tracts and urinary bladder. Osseous structures are intact. Patient reassessed, appears uncomfortable, tender. Will give Zosyn, morphine, Zofran, admit. Past History - Medical History Allergies/Adverse Reactions: Allergies Allergy/AdvReac Type Severity Reaction Status Date / Time No Known Allergies Allergy Verified 06/16/20 00:30 Home Medications: Ambulatory Orders Insulin Glargine,Hum.rec.anlog [Basaglar Kwikpen U-100] 20 unit SQ HS 04/30/18 Insulin Glargine,Hum.rec.anlog [Basaglar Kwikpen U-100] 60 unit SQ DAILY 04/30/18 Lisinopril [Prinivil] 10 mg PO DAILY 04/30/18 Cancer: No Cardiac Disorders: No COPD: No CHF: No Diabetes: Yes HTN: Yes Hypercholesterolemia: Yes - Immunization History Immunization Up to Date: Yes - Psycho-Social/Smoking History Smoking Status: No Smoking History: Never smoked Have you smoked in the past 12 months: No Number of Cigarettes Smoked Daily: 0 Information on smoking cessation initiated: No - Substance Abuse Hx (Audit-C & DAST Scrn) How often the patient has a drink containing alcohol: Never Score: In Men: 4 or > Positive; In Women: 3 or > Positive: 0 Screen Result (Pos requires Nsg. Audit-10AR): Negative In the last yr the pt used illegal drug/Rx for NonMed reason: No Score: Yes response is considered Positive: 0 Screen Result (Positive result requires Nsg. DAST-10): Negative *Physical Exam - Vital Signs Last Vital Signs Temp Pulse Resp BP Pulse Ox 98.1 F 86 16 130/56 L 96 06/16/20 00:25 06/16/20 00:25 06/16/20 00:25 06/16/20 00:25 06/16/20 00:25 ED Treatment Course - LABORATORY CBC & Chemistry Diagram: 06/16/20 01:09 06/16/20 01:09 Discharge - Discharge Information Problems reviewed: Yes Clinical Impression/Diagnosis: Diverticulitis Abdominal pain Qualifiers: Abdominal location: left lower quadrant Qualified Code(s): R10.32 - Left lower quadrant pain Condition: Fair - Follow up/Referral - Patient Discharge Instructions - Post Discharge Activity
--- NOTE | 2020-06-16 00:41 | PDOC ---
Attending Attestation - Resident Resident Name: MoodyBari thomas - ED Attending Attestation I have performed the following: I have examined & evaluated the patient, The case was reviewed & discussed with the resident, I agree w/resident's findings & plan, Exceptions are as noted - HPI HPI: 06/16/20 00:37 This 59 yo male BIBA for abdominal pain that started several days ago but tonight became much worse.He starts he is constipation and his last BM was 2 days ago. He denies any history of previous abdominal surgery 06/16/20 00:42 - Physicial Exam PE: 06/16/20 00:52 alert 59 yo male BIBA from home for worsening abdominal pain and constipation head ncat neck supple lungs cta b/l cvs [id number] abdomen ++distended abdomen, reducible umbilical hernia,tympanic extremities no pitting edema skin warm and dry neuro axox3,motor strength 5.5 b/l 06/16/20 01:47 - Medical Decision Making 06/16/20 00:56 diff diag includes fecal impaction.,sbo,vovulus labs.ct scan s/o to night team 06/16/20 01:54 Discharge - Discharge Information Problems reviewed: Yes Clinical Impression/Diagnosis: Diverticulitis Abdominal pain Qualifiers: Abdominal location: left lower quadrant Qualified Code(s): R10.32 - Left lower quadrant pain Condition: Fair - Follow up/Referral - Patient Discharge Instructions - Post Discharge Activity
[2020-06-16 01:39] LABS: BASO % 0.8 % (0-2.0); CHLORIDE 103 mmol/L (98-107); EOS % 1.6 % (0-4.5); HEMATOCRIT 42.4 % (35.4-49); HEMOGLOBIN 13.7 GM/dL (11.7-16.9); LYMPH % 9.6 % (8-40); MCH 27.5 pg (25.7-33.7); MCHC 32.4 g/dl (32.0-35.9); MEAN PLT VOLUME 7.8 fl (7.5-11.1); MONO % 4.7 % (3.8-10.2); NEUT % 83.3 % (42.8-82.8); PLATELET COUNT 552 K/MM3 (134-434); POTASSIUM 5.1 mmol/L (3.5-5.1); RBC 4.99 M/mm3 (4.00-5.60); SODIUM 139 mmol/L (136-145); WHITE BLOOD COUNT 13.5 K/mm3 (4.0-10.0)
[2020-06-16 01:41] LABS: ALBUMIN 3.2 g/dl (3.4-5.0); ANION GAP 6 MMOL/L (8-16); CALCIUM 8.8 mg/dL (8.5-10.1); CO2 30 mmol/L (21-32); GLUCOSE,RANDOM 129 mg/dL (74-106)
[2020-06-16 01:42] LABS: BLOOD UREA NITROGEN 26.1 mg/dL (7-18)
[2020-06-16 01:43] LABS: INR 1.08 (0.83-1.09); PROTHROMBIN TIME (PATIENT) 13.3 SEC (9.7-13.0)
[2020-06-16 01:44] LABS: CREATININE 1.1 mg/dL (0.55-1.3); SGPT/ALT 22 U/L (13-61)
[2020-06-16 01:45] LABS: SGOT/AST 46 U/L (15-37)
[2020-06-16 01:46] LABS: BILIRUBIN,TOTAL 0.5 mg/dL (0.2-1); TOT PROT 7.2 g/dl (6.4-8.2)
[2020-06-16 01:47] LABS: ALK PHOS 76 U/L (45-117)
[2020-06-16] MEDS ORDERED: ACETAMINOPHEN 1000 MG/100 ML VIAL (NON FORMULARY) IVPB ONE (03:17)
[2020-06-16] MEDS ORDERED: ACETAMINOPHEN INJECTION 100 ML IVPB ONE (03:28)
[2020-06-16] MEDS ORDERED: PIPERACILLIN/TAZOB 3.375 GM 3.375 GM in DEXTROSE 5%-WATER - 50 ML IVPB ONE (03:33)
[2020-06-16] MEDS ORDERED: morphine CARPU-JECT 4 MG/1 ML DISP.SYRIN IVPUSH ONE (03:56)
[2020-06-16] MEDS ORDERED: PIPERACILLIN/TAZOB 3.375 GM 3.375 GM/50 ML BAG IVPB ONE ×2 (03:59→10:45)
[2020-06-16] MEDS ORDERED: morphine SULFATE 4 MG/ML VIAL ONE (04:27)
--- NOTE | 2020-06-16 04:27 | HP ---
CHIEF COMPLAINT: Abdominal pain PCP: None HISTORY OF PRESENT ILLNESS: 59 y.o. Sudanese speaking M PMHx HTN, HLD, IDDM presenting due to abdominal pain for the past week. Patient states he has been having fever and chills for the past week. Pt endorses several bloody bowel movements with blood on the paper and in the stool. Pt states he has been having nausea and had 1 episode of non- bloody non-bilious emesis. Patient states his abdominal pain is a 10/10 intensity and is most severe in his lower abdomen. Patient states he tried a few home remedies and patrick seltzer which did not help his pain. This is his first episode of abdominal pain this severe and has no family members with any GI related disorders. Patient states he is compliant with all his home medications and has no recent abx use. Director Integrated # [id number] ER course was notable for: (1) Morphine 4mg (2) Ofirmev 1000mg (3) Zosyn 3.375 Recent Travel: No PAST MEDICAL HISTORY: HTN, HLD, IDDM PAST SURGICAL HISTORY: None Social History: Smoking: None Alcohol: None Drugs: None Allergies No Known Allergies Allergy (Verified 06/16/20 00:30) HOME MEDICATIONS: Home Medications Medication Instructions Recorded Insulin Glargine,Hum.rec.anlog 20 unit SQ HS 04/30/18 [Basaglar Kwikpen U-100] Insulin Glargine,Hum.rec.anlog 60 unit SQ DAILY 04/30/18 [Basaglar Kwikpen U-100] Lisinopril [Prinivil] 10 mg PO DAILY 04/30/18 REVIEW OF SYSTEMS CONSTITUTIONAL: fever, chills Absent: diaphoresis, generalized weakness, malaise, loss of appetite, weight change HEENT: Absent: rhinorrhea, nasal congestion, throat pain, throat swelling, difficulty swallowing, mouth swelling, ear pain, eye pain, visual changes CARDIOVASCULAR: Absent: chest pain, syncope, palpitations, irregular heart rate, lightheadedness, peripheral edema RESPIRATORY: Absent: cough, shortness of breath, dyspnea with exertion, orthopnea, wheezing, stridor, hemoptysis GASTROINTESTINAL: abdominal pain, nausea, vomiting, hematochezia Absent: abdominal distension, diarrhea, constipation, melena GENITOURINARY: Absent: dysuria, frequency, urgency, hesitancy, hematuria, flank pain, genital pain MUSCULOSKELETAL: Absent: myalgia, arthralgia, joint swelling, back pain, neck pain SKIN: Absent: rash, itching, pallor HEMATOLOGIC/IMMUNOLOGIC: Absent: easy bleeding, easy bruising, lymphadenopathy, frequent infections ENDOCRINE: Absent: unexplained weight gain, unexplained weight loss, heat intolerance, cold intolerance NEUROLOGIC: Absent: headache, focal weakness or paresthesias, dizziness, unsteady gait, seizure, mental status changes, bladder or bowel incontinence PSYCHIATRIC: Absent: anxiety, depression, suicidal or homicidal ideation, hallucinations. PHYSICAL EXAMINATION Vital Signs - 24 hr 06/16/20 00:25 Temperature 98.1 F Pulse Rate 86 Respiratory 16 Rate Blood Pressure 130/56 L O2 Sat by Pulse 96 Oximetry (%) GENERAL: Awake, alert, and fully oriented, in no acute distress. HEAD: Normal with no signs of trauma. EYES: Pupils equal, round and reactive to light, extraocular movements intact, sclera anicteric, conjunctiva clear. EARS, NOSE, THROAT: Oropharynx clear without exudates. Moist mucous membranes. NECK: No JVD, or masses. LUNGS: Breath sounds equal, clear to auscultation bilaterally. No wheezes, and no crackles. No accessory muscle use. HEART: Regular rate and rhythm, normal S1 and S2 without murmur, rub or gallop. ABDOMEN: Soft, diffusely tender, distended, normoactive bowel sounds, no guarding, no rebound, no masses. MUSCULOSKELETAL: Normal range of motion at all joints. No bony deformities or tenderness. No CVA tenderness. UPPER EXTREMITIES: 2+ pulses, warm, well-perfused. No cyanosis. No clubbing. No peripheral edema. LOWER EXTREMITIES: 2+ pulses, warm, well-perfused. No calf tenderness. No peripheral edema. NEUROLOGICAL: Cranial nerves II-XII intact. Normal speech. PSYCHIATRIC: Cooperative. Good eye contact. Appropriate mood and affect. SKIN: Warm, dry, normal turgor, no rashes or lesions noted. Laboratory Results - last 24 hr 06/16/20 06/16/20 06/16/20 01:09 01:09 01:09 WBC 13.5 H RBC 4.99 Hgb 13.7 Hct 42.4 MCV 85.0 MCH 27.5 MCHC 32.4 RDW 15.0 Plt Count 552 H MPV 7.8 Absolute Neuts (auto) 11.3 H Neutrophils % 83.3 H D Lymphocytes % 9.6 D Monocytes % 4.7 Eosinophils % 1.6 Basophils % 0.8 Nucleated RBC % 0 PT with INR 13.30 H INR 1.08 PTT (Actin FS) 25.0 L Sodium 139 Potassium 5.1 Chloride 103 Carbon Dioxide 30 Anion Gap 6 L BUN 26.1 H Creatinine 1.1 Est GFR (CKD-EPI)AfAm 83.53 Est GFR (CKD-EPI)NonAf 72.07 Random Glucose 129 H Calcium 8.8 Total Bilirubin 0.5 AST 46 H ALT 22 Alkaline Phosphatase 76 Creatine Kinase 255 Creatine Kinase Index 0.4 CK-MB (CK-2) 1.2 Troponin I < 0.02 Total Protein 7.2 Albumin 3.2 L ASSESSMENT/PLAN: 59 y.o. Sudanese speaking M H HTN, HLD, IDDM presenting due to abdominal pain for the past week. # Diverticulitis - CT shows diverticulitis in the L and sigmoid colon - WBC 13.5, trend - Ciprofloxacin 400mg BID, Flagyl 500mg Q8 - Morphine 2mg Q4 - Ofirmev 1,000mg Q6 PRN - NPO - Zofran 4mg Q6 IVP, QTc 447ms #HTN - Continue home dose of lisinopril # DM - Sliding scale - BGM'S # HLD - Continue home meds # r/o covid - Isolation precautions: Pending covid test result # FEN - 1L bolus LR - 100mL/hr LR Maintenance - clear liquid # DVT ppx - SCD'S - Early ambulation # Disposition - Admit to Med-surg Family Medical History Family History: As Documented Visit type - Emergency Visit Emergency Visit: Yes ED Registration Date: 06/16/20 Care time: The patient presented to the Emergency Department on the above date and was hospitalized for further evaluation of their emergent condition. - New Patient This patient is new to me today: Yes Date on this admission: 06/16/20 - Critical Care Critical Care patient: No ATTENDING PHYSICIAN STATEMENT I saw and evaluated the patient. I reviewed the resident's note and discussed the case with the resident. I agree with the resident's findings and plan as documented. SUBJECTIVE: OBJECTIVE: ASSESSMENT AND PLAN:
[2020-06-16] MEDS ORDERED: ONDANSETRON 4 MG/2 ML VIAL IVPUSH ONE ×2 (04:31→06:17)
--- OUTSIDE RECORDS SUMMARY | 2020-06-16 04:42 | XMS ---
:1960 Author Organization [facility] Support Name Relationship Address Phone UE, UNEMPLOYED Unavailable Unavailable Unavailable UE Unavailable Unavailable Unavailable MANSOOR BEJARANO SON [address] [phone] [place] [address] JENARO BEJARANO [address] [place] [address] Re-disclosure Warning The records that you are [...] is protected by Article 27-F of the [facility] Public Health law. If you continue you may haveaccess to information: Regarding HIV / AIDS; Provided by facilities licensed or operated by the [facility] Office of Mental Health; or Provided by the [facility] Office for People With Developmental Disabilities. If such information is present, then the following [facility] mandated warning applies: This information has [...] law may result in a fine or fpc sentence or both. A general authorization for the release of medical or other information is NOT sufficient authorization for further disclosure. Insurance Providers Payer name Policy type Policy ID Covered Covered republican's Policy P sam / Coverage republican ID relationship to [facility] [employer] type gro[employer] [id number] SP [id number] [facility] (MEDICARE) [facility] [id number] SP [id number] NON CAP
--- NOTE | 2020-06-16 04:48 | PN ---
Teaching Attending Note Name of Resident: Magdaleno Handley ATTENDING PHYSICIAN STATEMENT I saw and evaluated the patient. I reviewed the resident's note and discussed the case with the resident. I agree with the resident's findings and plan as documented. SUBJECTIVE: 59yoM with history of HTN, HLD, and T2DM on insulin who presents with a week of abdominal pain and distension that acutely worsened tonight. Patient has attempted patrick seltzer and milk of magnesia wtih no improvement in pain. Endorses nausea and diarrhea with occasional streaks of bright red blood but no fever, chills, or vomiting. Afebrile and hemodynamically stable on arrival to the ED. Labs showing WBC 13.5, BUN 26, Creatinine 1.1. CT abd/pelvis showed advanced left colon and sigmoid diverticulosis with possible early diverticulitis. Patient received Zosyn and is admitted for further management. At time of evaluation patient complains of nausea but states it is because he is so hungry. OBJECTIVE: Vital Signs - 24 hr 06/16/20 06/16/20 00:25 04:23 Temperature 98.1 F 98.7 F Pulse Rate 86 Pulse Rate [ 80 Apical] Respiratory 16 20 Rate Blood Pressure 130/56 L Blood Pressure 145/75 [Arm] O2 Sat by Pulse 96 95 Oximetry (%) EXAM Gen: awake, alert, uncomfortable appearing but in no acute distress HEENT: NC/AT. Anicteric sclera CV: RRR, no MRG appreciated Resp: CTAB, unlabored Abd: Distended, mild diffuse tenderness to palpation wtihout rebound/guarding. +BS throughout Ext: No edema Neuro: CN II-XII grossly intact. Psych: AOx3, appropriate mood/affect Laboratory Results - last 24 hr 06/16/20 06/16/20 06/16/20 01:09 01:09 01:09 WBC 13.5 H RBC 4.99 Hgb 13.7 Hct 42.4 MCV 85.0 MCH 27.5 MCHC 32.4 RDW 15.0 Plt Count 552 H MPV 7.8 Absolute Neuts (auto) 11.3 H Neutrophils % 83.3 H D Lymphocytes % 9.6 D Monocytes % 4.7 Eosinophils % 1.6 Basophils % 0.8 Nucleated RBC % 0 PT with INR 13.30 H INR 1.08 PTT (Actin FS) 25.0 L Sodium 139 Potassium 5.1 Chloride 103 Carbon Dioxide 30 Anion Gap 6 L BUN 26.1 H Creatinine 1.1 Est GFR (CKD-EPI)AfAm 83.53 Est GFR (CKD-EPI)NonAf 72.07 Random Glucose 129 H Calcium 8.8 Total Bilirubin 0.5 AST 46 H ALT 22 Alkaline Phosphatase 76 Creatine Kinase 255 Creatine Kinase Index 0.4 CK-MB (CK-2) 1.2 Troponin I < 0.02 Total Protein 7.2 Albumin 3.2 L Imaging, EKG reviewed in chart ASSESSMENT AND PLAN: 59yoM with history of HTN, HLD, and T2DM on insulin who presents with a week of abdominal pain and distension that acutely worsened tonight. Early diverticulitis Prelim read of CT abd/pelvis showing few foci of pericolonic fat stranding in mid left colon Leukocytosis with left shift, does not otherwise meet sepsis criteria s/p Zosyn in ED - cipro/Flagyl - CLD, advance as tolerated - IV fluids - pain control with IV acetaminophen, morphine PRN - f/u final read of CT abd/pelvis T2DM: ISS HTN: continue lisinopril DVT ppx: Lovenox subq
[2020-06-16] MEDS ORDERED: LACTATED RINGERS SOLUTION 1,000 ML IV STA (05:39)
[2020-06-16] MEDS ORDERED: MORPHINE SULFATE 2 MG/ML VIAL IVPUSH PRN (05:39)
[2020-06-16] MEDS ORDERED: ONDANSETRON 4 MG/2 ML VIAL IVPUSH PRN (05:43)
[2020-06-16] MEDS ORDERED: LACTATED RINGERS SOLUTION 1,000 ML IV SCH (05:45)
[2020-06-16] MEDS ORDERED: ACETAMINOPHEN 1000 MG/100 ML VIAL (NON FORMULARY) IVPB PRN (05:51)
[2020-06-16] MEDS ORDERED: MORPHINE SULFATE 2 MG/ML VIAL ONE (06:23)
[2020-06-16 06:32] VITALS: BP 116/78; PULSE 76; TEMP 98
[2020-06-16] MEDS: INSULIN SLIDING SCALE (NOVOLOG) 1 VIAL SQ SCH ×2 (08:00→11:46)
--- NOTE | 2020-06-16 09:11 | CON.ID ---
Consult Consult Specialty:: infectious diseases - Past Medical History Cardio/Vascular: Yes: HTN, Hyperlipdemia Endocrine: Yes: Diabetes Mellitus - Past Surgical History Past Surgical History: Yes: None - Alcohol/Substance Use Hx Alcohol Use: No - Smoking History Smoking history: Never smoked Have you smoked in the past 12 months: No Aproximately how many cigarettes per day: 0 Home Medications - Allergies Allergies/Adverse Reactions: Allergies Allergy/AdvReac Type Severity Reaction Status Date / Time No Known Allergies Allergy Verified 06/16/20 00:30 - Home Medications Home Medications: Ambulatory Orders Insulin Glargine,Hum.rec.anlog [Basaglar Kwikpen U-100] 20 unit SQ HS 04/30/18 Insulin Glargine,Hum.rec.anlog [Basaglar Kwikpen U-100] 60 unit SQ DAILY 04/30/18 Lisinopril [Prinivil] 10 mg PO DAILY 04/30/18 Physical Exam Vital Signs: Vital Signs Temperature 98 F 06/16/20 06:32 Pulse Rate 76 06/16/20 06:32 Respiratory Rate 19 06/16/20 06:32 Blood Pressure 116/78 06/16/20 06:32 O2 Sat by Pulse Oximetry (%) 97 06/16/20 06:32 Labs: CBC, BMP 06/16/20 01:09 06/16/20 01:09
[2020-06-16] MEDS ORDERED: PIPERACILLIN/TAZOB 3.375 GM 3.375 GM in DEXTROSE 5%-WATER - 50 ML IVPB SCH ×3 (10:00→18:00)
--- NOTE | 2020-06-16 10:57 | EKG ---
Test Reason : Blood Pressure : / mmHG Vent. Rate : 080 BPM Atrial Rate : 080 BPM P-R Int : 170 ms QRS Dur : 082 ms QT Int : 388 ms P-R-T Axes : 057 010 069 degrees QTc Int : 447 ms NORMAL SINUS RHYTHM CANNOT RULE OUT INFERIOR INFARCT , AGE UNDETERMINED MARKED T WAVE ABNORMALITY, CONSIDER LATERAL ISCHEMIA ABNORMAL ECG Confirmed by MD RIGOBERTO, SOFÍA ([id number]) on 06/16/2020 10:57:07 AM Referred By: Confirmed By:SOFÍA FRANKLIN MD
[2020-06-16 11:08] LABS: BASO % 0.5 % (0-2.0); EOS % 1.1 % (0-4.5); HEMATOCRIT 43.1 % (35.4-49); HEMOGLOBIN 13.9 GM/dL (11.7-16.9); LYMPH % 14.3 % (8-40); MCH 27.3 pg (25.7-33.7); MCHC 32.1 g/dl (32.0-35.9); MEAN PLT VOLUME 7.4 fl (7.5-11.1); MONO % 5.4 % (3.8-10.2); NEUT % 78.7 % (42.8-82.8); PLATELET COUNT 541 K/MM3 (134-434); RBC 5.07 M/mm3 (4.00-5.60); RDW 14.7 % (11.9-15.9)
[2020-06-16 11:30] LABS: POTASSIUM 4.4 mmol/L (3.5-5.1)
[2020-06-16 11:36] LABS: ALBUMIN 3.2 g/dl (3.4-5.0)
[2020-06-16 11:39] LABS: CREATININE 0.8 mg/dL (0.55-1.3)
[2020-06-16 11:40] LABS: PHOSPHOROUS 3.8 mg/dL (2.5-4.9)
[2020-06-16 11:41] LABS: BILIRUBIN,TOTAL 0.8 mg/dL (0.2-1); CALCIUM 8.3 mg/dL (8.5-10.1); TOT PROT 6.8 g/dl (6.4-8.2)
[2020-06-16 11:42] LABS: BLOOD UREA NITROGEN 21.1 mg/dL (7-18); MAGNESIUM 2.8 mg/dL (1.8-2.4)
--- NOTE | 2020-06-16 16:10 | DS ---
Physical Exam: SUBJECTIVE: Patient seen and examined in ED this morning, stated he was no longer having the pain he had previously, expressed desire to go home because he has an Autistic child at home with no setter machine to help him except himself. OBJECTIVE: Vital Signs Period Temp Pulse Resp BP Sys/Kraus Pulse Ox Last 24 Hr 98 F-98.7 F 76-86 16-20 116-145/56-78 95-97 PHYSICAL EXAM GENERAL: The patient is awake, alert, and fully oriented, in no acute distress. HEAD: Normal with no signs of trauma. EYES: PERRL, extraocular movements intact, sclera anicteric, conjunctiva clear. ENT: Ears normal, nares patent, oropharynx clear without exudates, moist mucous membranes. NECK: Trachea midline, full range of motion, supple. LUNGS: Breath sounds equal, clear to auscultation bilaterally, no wheezes, no crackles, no accessory muscle use. HEART: Regular rate and rhythm, S1, S2 without murmur, rub or gallop. ABDOMEN: Soft, nontender, nondistended, normoactive bowel sounds, no guarding, no rebound EXTREMITIES: 2+ pulses, warm, well-perfused, no edema. NEUROLOGICAL: Cranial nerves II through XII grossly intact. Normal speech, gait not observed. PSYCH: Normal mood, normal affect. SKIN: Warm, dry, normal turgor, no rashes or lesions noted. LABS Laboratory Results - last 24 hr 06/16/20 06/16/20 06/16/20 01:09 01:09 01:09 WBC 13.5 H RBC 4.99 Hgb 13.7 Hct 42.4 MCV 85.0 MCH 27.5 MCHC 32.4 RDW 15.0 Plt Count 552 H MPV 7.8 Absolute Neuts (auto) 11.3 H Neutrophils % 83.3 H D Lymphocytes % 9.6 D Monocytes % 4.7 Eosinophils % 1.6 Basophils % 0.8 Nucleated RBC % 0 PT with INR 13.30 H INR 1.08 PTT (Actin FS) 25.0 L Sodium 139 Potassium 5.1 Chloride 103 Carbon Dioxide 30 Anion Gap 6 L BUN 26.1 H Creatinine 1.1 Est GFR (CKD-EPI)AfAm 83.53 Est GFR (CKD-EPI)NonAf 72.07 POC Glucometer Random Glucose 129 H Calcium 8.8 Phosphorus Magnesium Total Bilirubin 0.5 AST 46 H ALT 22 Alkaline Phosphatase 76 Creatine Kinase 255 Creatine Kinase Index 0.4 CK-MB (CK-2) 1.2 Troponin I < 0.02 Total Protein 7.2 Albumin 3.2 L 06/16/20 06/16/20 06/16/20 08:16 10:45 10:45 WBC 12.0 H RBC 5.07 Hgb 13.9 Hct 43.1 MCV 85.0 MCH 27.3 MCHC 32.1 RDW 14.7 Plt Count 541 H MPV 7.4 L Absolute Neuts (auto) 9.4 H Neutrophils % 78.7 Lymphocytes % 14.3 D Monocytes % 5.4 Eosinophils % 1.1 Basophils % 0.5 Nucleated RBC % 0 PT with INR INR PTT (Actin FS) Sodium 140 Potassium 4.4 Chloride 106 Carbon Dioxide 28 Anion Gap 5 L BUN 21.1 H Creatinine 0.8 Est GFR (CKD-EPI)AfAm 111.74 Est GFR (CKD-EPI)NonAf 96.41 POC Glucometer 86 Random Glucose 79 Calcium 8.3 L Phosphorus 3.8 Magnesium 2.8 H Total Bilirubin 0.8 AST 70 H ALT 55 Alkaline Phosphatase 105 Creatine Kinase Creatine Kinase Index CK-MB (CK-2) Troponin I Total Protein 6.8 Albumin 3.2 L 06/16/20 11:43 WBC RBC Hgb Hct MCV MCH MCHC RDW Plt Count MPV Absolute Neuts (auto) Neutrophils % Lymphocytes % Monocytes % Eosinophils % Basophils % Nucleated RBC % PT with INR INR PTT (Actin FS) Sodium Potassium Chloride Carbon Dioxide Anion Gap BUN Creatinine Est GFR (CKD-EPI)AfAm Est GFR (CKD-EPI)NonAf POC Glucometer 84 Random Glucose Calcium Phosphorus Magnesium Total Bilirubin AST ALT Alkaline Phosphatase Creatine Kinase Creatine Kinase Index CK-MB (CK-2) Troponin I Total Protein Albumin HOSPITAL COURSE: Date of Admission:06/16/20 CT AP: There is extensive diverticulosis of the descending colon and proximal sigmoid colon. While there is no definite evidence of acute diverticulitis. There is the suggestion of mild stranding of the pericolonic mesenteric fat adjacent to the mid descending colon and the possibly of early, mild diverticulitis cannot be excluded EKG: NSR, cannot rule out inferior infarct, age undetermined, consider lateral ischemia Date of Discharge: 06/16/20 59 yo M w/ PMHx of HTN, HLD, IDDM presenting due to abdominal pain for the past week. Pt endorsed bloody bowel movements last week, but none recently. Additionally Pt states he was nauseas last week w/ x1 NBNB vomittus, but none recently. Patient states his abdominal pain is a 10/10 intensity and is most severe in his mid abdomen. Patient states he tried a few home remedies and patrick seltzer which did not help his pain. This is his first episode of abdominal pain this severe and has no family members with any GI related disorders. Patient states he is compliant with all his home medications and has no recent abx use. ER course was notable for: (1) Morphine 4mg (2) Ofirmev 1000mg (3) Zosyn 3.375 Patient was admitted to the floors for suspected diverticulitis. Ptn was made NPO. Ptn informed MD that he would not stay more than a few hours because he had to take care of his Autistic child. Ptn informed of the seriousness of his condition and the potential for decompensation. Ptn agreed to stay for now. In the afternoon, MD was informed that the patient had Eloped. Ptn did not sign out AMA. Minutes to complete discharge: 36 Discharge Summary Problems reviewed: Yes Reason For Visit: DIVERTICULITIS Condition: Fair - Instructions Disposition: ELOPED - Home Medications Comprehensive Discharge Medication List: Ambulatory Orders Insulin Glargine,Hum.rec.anlog [Basaglar Kwikpen U-100] 50 unit SQ HS 04/30/18 Insulin Glargine,Hum.rec.anlog [Basaglar Kwikpen U-100] 60 unit SQ DAILY 04/30/18 Lisinopril [Prinivil] 10 mg PO DAILY 04/30/18 Mirtazapine 15 mg PO HS 06/16/20 Tamsulosin HCl 0.4 mg PO DAILY 06/16/20 This patient is new to me today: Yes Date on this admission: 06/16/20 Emergency Visit: Yes ED Registration Date: 06/16/20 Care time: The patient presented to the Emergency Department on the above date and was hospitalized for further evaluation of their emergent condition. Critical Care patient: No - Discharge Referral Referred to [facility] Med P.C.: No ATTENDING PHYSICIAN STATEMENT I saw and evaluated the patient. I reviewed the resident's note and discussed the case with the resident. I agree with the resident's findings and plan as documented. SUBJECTIVE: OBJECTIVE: ASSESSMENT AND PLAN:
== END 2020-06-16 14:04 | disposition left against medical advice (07) | DRG 392 ==
LOC: JER 00:19 → JERBED 03:37
PROVIDERS: ADMIT Hospitalist
DX: K57.92 Diverticulitis of intestine, part unspecified, without perforation or abscess without bleeding (principal); I10 Essential (primary) hypertension; E78.5 Hyperlipidemia, unspecified; E11.9 Type 2 diabetes mellitus without complications; D72.829 Elevated white blood cell count, unspecified
CPT/HCPCS: 36415; 71045-TC-FY; 74177-TC; 80053; 82550; 82553; 82962; 83735; 84100; 84484; 85025; 85610; 85730; 93005; 93010; 99285-25; C9803; J0131; Q9967; U0003

== ENCOUNTER 2021-04-29 21:24 | Inpatient (IN) | payer OTHER ==
[2021-04-29] MEDS ORDERED: morphine CARPU-JECT 2 MG/1 ML DISP.SYRIN IVPUSH ONE (22:00)
[2021-04-29] MEDS ORDERED: MORPHINE SULFATE 2 MG/ML VIAL ONE (22:15)
[2021-04-29 22:31] LABS: BASO % 0.8 % (0-2.0); EOS % 2.2 % (0-4.5); HEMATOCRIT 45.9 % (35.4-49); HEMOGLOBIN 15.6 GM/dL (11.7-16.9); LYMPH % 15.3 % (8-40); MEAN CELL VOLUME 85.3 fl (80-96); MEAN PLT VOLUME 7.4 fl (7.5-11.1); MONO % 4.8 % (3.8-10.2); NEUT % 76.9 % (42.8-82.8); PLATELET COUNT 552 10^3/uL (134-434); RBC 5.37 M/mm3 (4.00-5.60); WHITE BLOOD COUNT 14.4 K/mm3 (4.0-10.0)
[2021-04-29 22:36] LABS: INR 0.87 (0.83-1.09); PROTHROMBIN TIME (PATIENT) 10.6 SEC (9.7-13.0)
[2021-04-29 22:38] LABS: ACTIVATED PTT 28.7 SECONDS (25.2-36.5)
[2021-04-29 22:49] LABS: CHLORIDE 102 mmol/L (98-107); SODIUM 138 mmol/L (136-145)
[2021-04-29 22:53] LABS: ALBUMIN 3.8 g/dl (3.4-5.0); ANION GAP 6 MMOL/L (8-16); BLOOD UREA NITROGEN 16.1 mg/dL (7-18); CO2 30 mmol/L (21-32); GLUCOSE,RANDOM 242 mg/dL (74-106); LIPASE 217 U/L (73-393); MAGNESIUM 2.1 mg/dL (1.8-2.4)
[2021-04-29 22:56] LABS: CREATININE 1.2 mg/dL (0.55-1.3); SGOT/AST 77 U/L (15-37); SGPT/ALT 52 U/L (13-61)
[2021-04-29 22:58] LABS: BILIRUBIN,TOTAL 0.8 mg/dL (0.2-1); LACTIC ACID 2.8 mmol/L (0.4-2.0); TOT PROT 7.6 g/dl (6.4-8.2)
[2021-04-29 22:59] LABS: ALK PHOS 102 U/L (45-117)
[2021-04-29] MEDS ORDERED: SODIUM CHLORIDE 0.9% 500 ML INFUS.BAG IV ONE (23:39)
[2021-04-30] MEDS ORDERED: LACTULOSE 20 GM/30 ML UDC (FOR ORAL USE ONLY) PO ONE (01:42)
[2021-04-30] MEDS ORDERED: LACTULOSE 20 GM/30 ML UDC (FOR ORAL USE ONLY) ONE (02:14)
[2021-04-30 03:06] LABS: URINE APPEARANCE CLEAR; URINE BILIRUBIN NEGATIVE (NEGATIVE); URINE COLOR YELLOW; URINE KETONE NEGATIVE (NEGATIVE)
[2021-04-30 03:07] LABS: URINE LEUK ESTERASE NEGATIVE (NEGATIVE); URINE NITRITE NEGATIVE (NEGATIVE); URINE PROTEIN NEGATIVE (NEGATIVE)
[2021-04-30 03:08] LABS: EPI CELLS 1 /uL (0-25.1); HYALINE CASTS 0 /uL (0-3.1); URINE BACTERIA 72 /uL (0-1359); URINE RBC 2 /uL (0-23.9); URINE WBC 1 /uL (0-25.8)
[2021-04-30 04:00] VITALS: BMI 37.3
[2021-04-30] MEDS: SODIUM CHLORIDE 1,000 ML IV SCH ×2 (04:22→16:52)
[2021-04-30 05:22] LABS: BASO % 0.6 % (0-2.0); EOS % 0.8 % (0-4.5); HEMATOCRIT 41.6 % (35.4-49); HEMOGLOBIN 14.3 GM/dL (11.7-16.9); LYMPH % 16.7 % (8-40); MCH 29.1 pg (25.7-33.7); MCHC 34.5 g/dl (32.0-35.9); MEAN CELL VOLUME 84.5 fl (80-96); MEAN PLT VOLUME 7.6 fl (7.5-11.1); MONO % 5.6 % (3.8-10.2); NEUT % 76.3 % (42.8-82.8); PLATELET COUNT 474 10^3/uL (134-434); RBC 4.92 M/mm3 (4.00-5.60); RDW 15.2 % (11.9-15.9); WHITE BLOOD COUNT 10.5 K/mm3 (4.0-10.0)
[2021-04-30] MEDS: INSULIN SLIDING SCALE (NOVOLOG) 1 VIAL SQ SCH ×3 (06:04→16:52)
[2021-04-30] MEDS: metroNIDAZOLE 500 MG TABLET PO SCH ×2 (06:38→14:43)
[2021-04-30 09:15] LABS: BLOOD UREA NITROGEN 10.8 mg/dL (7-18)
[2021-04-30 09:18] LABS: CREATININE 0.7 mg/dL (0.55-1.3)
[2021-04-30 09:19] LABS: PHOSPHOROUS 3.5 mg/dL (2.5-4.9)
[2021-04-30 09:20] LABS: BILIRUBIN,TOTAL 0.4 mg/dL (0.2-1); TOT PROT 6.2 g/dl (6.4-8.2)
[2021-04-30 09:24] LABS: CALCIUM 7.5 mg/dL (8.5-10.1)
[2021-04-30] MEDS ORDERED: CEFTRIAXONE 500 MG in DEXTROSE 5%-WATER - 50 ML IVPB SCH (10:00)
[2021-04-30] MEDS ORDERED: POLYETHYLENE GLYCOL (HEALTHYLAX) 3350 17 GM PACKET PO SCH (10:00)
[2021-04-30] MEDS ORDERED: PT OWN MED DRAWER 7, Y5N ONE ×2 (11:37→14:35)
[2021-04-30] MEDS: TAMSULOSIN HCL 0.4 MG CAP PO SCH (11:45)
[2021-04-30] MEDS: LISINOPRIL 10 MG TABLET PO SCH (11:46)
[2021-04-30] MEDS: PANTOPRAZOLE 20 MG TABLET PO SCH (11:46)
[2021-04-30] MEDS: ENOXAPARIN NA (PORCINE) 40 MG/0.4 ML DISP.SYRIN SQ SCH (14:42)
[2021-04-30] MEDS: DOCUSATE SODIUM 100 MG CAPSULE (FP) PO SCH (14:43)
[2021-04-30] MEDS: SENNOSIDES 8.6MG TABLET (FP) PO SCH (22:45)
[2021-04-30] MEDS: MIRTAZAPINE 15 MG TABLET (FP) PO SCH (22:45)
[2021-04-30] MEDS ORDERED: MELATONIN 5 MG TABLETS PO ONE (23:00)
[2021-05-01] MEDS: INSULIN SLIDING SCALE (NOVOLOG) 1 VIAL SQ SCH ×3 (06:27→17:02)
[2021-05-01 08:37] LABS: BASO % 0.8 % (0-2.0); EOS % 6.4 % (0-4.5); HEMATOCRIT 42.9 % (35.4-49); HEMOGLOBIN 14.3 GM/dL (11.7-16.9); LYMPH % 24.4 % (8-40); MCH 28.8 pg (25.7-33.7); MCHC 33.3 g/dl (32.0-35.9); MEAN CELL VOLUME 86.3 fl (80-96); MEAN PLT VOLUME 7.6 fl (7.5-11.1); MONO % 6.5 % (3.8-10.2); NEUT % 61.9 % (42.8-82.8); PLATELET COUNT 469 10^3/uL (134-434); RBC 4.97 M/mm3 (4.00-5.60); RDW 15.4 % (11.9-15.9); WHITE BLOOD COUNT 8.7 K/mm3 (4.0-10.0)
[2021-05-01 09:08] LABS: ALBUMIN 2.9 g/dl (3.4-5.0); CALCIUM 7.8 mg/dL (8.5-10.1)
[2021-05-01 09:09] LABS: BLOOD UREA NITROGEN 9.6 mg/dL (7-18)
[2021-05-01 09:11] LABS: CREATININE 0.7 mg/dL (0.55-1.3)
[2021-05-01 09:12] LABS: BILIRUBIN,TOTAL 0.6 mg/dL (0.2-1); TOT PROT 6.2 g/dl (6.4-8.2)
[2021-05-01] MEDS ORDERED: DEXTROSE 5%-WATER - 50 ML IVPB ONE (10:14)
[2021-05-01] MEDS ORDERED: cefTRIAXone SODIUM 1 GM VIAL ONE (10:14)
[2021-05-01] MEDS: SODIUM CHLORIDE 1,000 ML IV SCH (10:15)
[2021-05-01] MEDS: TAMSULOSIN HCL 0.4 MG CAP PO SCH (10:16)
[2021-05-01] MEDS: ENOXAPARIN NA (PORCINE) 40 MG/0.4 ML DISP.SYRIN SQ SCH (10:16)
[2021-05-01] MEDS: LISINOPRIL 10 MG TABLET PO SCH (10:16)
[2021-05-01] MEDS: DOCUSATE SODIUM 100 MG CAPSULE (FP) PO SCH (10:16)
[2021-05-01] MEDS: PANTOPRAZOLE 20 MG TABLET PO SCH (10:16)
[2021-05-01] MEDS: CEFTRIAXONE 1 GM in DEXTROSE 5%-WATER - 50 ML IVPB SCH (10:16)
[2021-05-01] MEDS ORDERED: DOCUSATE SODIUM 100 MG CAPSULE (FP) PO SCH (16:06)
[2021-05-01] MEDS: MIRTAZAPINE 15 MG TABLET (FP) PO SCH (21:26)
[2021-05-01] MEDS: SENNOSIDES 8.6MG TABLET (FP) PO SCH (21:26)
[2021-05-02] MEDS: SODIUM CHLORIDE 1,000 ML IV SCH ×2 (01:04→05:50)
[2021-05-02] MEDS: LISINOPRIL 20 MG TABLET PO SCH ×2 (06:27→12:09)
[2021-05-02] MEDS: INSULIN SLIDING SCALE (NOVOLOG) 1 VIAL SQ SCH ×3 (06:31→18:05)
[2021-05-02 08:20] LABS: BASO % 0.8 % (0-2.0); HEMATOCRIT 43.8 % (35.4-49); HEMOGLOBIN 14.9 GM/dL (11.7-16.9); LYMPH % 27.1 % (8-40); MCH 28.8 pg (25.7-33.7); MCHC 33.9 g/dl (32.0-35.9); MEAN CELL VOLUME 84.9 fl (80-96); MEAN PLT VOLUME 7.6 fl (7.5-11.1); MONO % 5.4 % (3.8-10.2); NEUT % 59.7 % (42.8-82.8); PLATELET COUNT 489 10^3/uL (134-434); RBC 5.16 M/mm3 (4.00-5.60); RDW 14.9 % (11.9-15.9); WHITE BLOOD COUNT 9.2 K/mm3 (4.0-10.0)
[2021-05-02 08:30] LABS: BLOOD UREA NITROGEN 8.2 mg/dL (7-18)
[2021-05-02 08:33] LABS: CREATININE 0.8 mg/dL (0.55-1.3)
[2021-05-02] MEDS ORDERED: cefTRIAXone SODIUM 1 GM VIAL ONE (10:15)
[2021-05-02] MEDS ORDERED: DEXTROSE 5%-WATER - 50 ML IVPB ONE (10:16)
[2021-05-02] MEDS ORDERED: ACETAMINOPHEN 1000 MG/100 ML VIAL (NON FORMULARY) IVPB ONE (10:37)
[2021-05-02] MEDS: CEFTRIAXONE 1 GM in DEXTROSE 5%-WATER - 50 ML IVPB SCH (10:42)
[2021-05-02] MEDS: ENOXAPARIN NA (PORCINE) 40 MG/0.4 ML DISP.SYRIN SQ SCH (10:42)
[2021-05-02] MEDS: PANTOPRAZOLE 20 MG TABLET PO SCH (10:43)
[2021-05-02] MEDS: TAMSULOSIN HCL 0.4 MG CAP PO SCH (10:43)
[2021-05-02] MEDS ORDERED: HYDROCHLOROTHIAZIDE 12.5 MG CAPSULE (FP) PO SCH (10:45)
[2021-05-02] MEDS ORDERED: amLODIPine BESYLATE 10 MG TABLET (FP) PO SCH (16:00)
[2021-05-02 19:29] VITALS: PULSE 75
[2021-05-02] MEDS ORDERED: LISINOPRIL 10 MG TABLET PO ONE (20:40)
[2021-05-02 20:51] VITALS: BP 173/91; TEMP 98.4
== END 2021-05-02 20:55 | disposition left against medical advice (07) | DRG 392 ==
LOC: JER 21:24 → JERBED 04-30 00:49 → J5S 04-30 03:24
PROVIDERS: ADMIT Internal Medicine; ATTEND Internal Medicine
DX: K57.32 Diverticulitis of large intestine without perforation or abscess without bleeding (principal); J98.11 Atelectasis; E87.2 Acidosis; R10.32 Left lower quadrant pain; N40.0 Benign prostatic hyperplasia without lower urinary tract symptoms; I10 Essential (primary) hypertension; E78.5 Hyperlipidemia, unspecified; E11.9 Type 2 diabetes mellitus without complications; E66.9 Obesity, unspecified; Z68.37 Body mass index [BMI] 37.0-37.9, adult; E11.65 Type 2 diabetes mellitus with hyperglycemia; F32.9 Major depressive disorder, single episode, unspecified; K21.9 Gastro-esophageal reflux disease without esophagitis; K76.0 Fatty (change of) liver, not elsewhere classified; M54.9 Dorsalgia, unspecified; D72.829 Elevated white blood cell count, unspecified; I16.0 Hypertensive urgency; E27.9 Disorder of adrenal gland, unspecified
CPT/HCPCS: 36415; 71046-TC-FY; 74177-TC; 80048; 80053; 80061; 81003; 82550; 82962; 83036; 83605; 83690; 83735; 84100; 84484; 85025; 85610; 85730; 86140; 87077; 87086; 93005; 93010; 99285-25; C9803; J0131; U0003; U0005

== ENCOUNTER 2021-07-15 04:18 | Day surgery (SDC) | payer OTHER ==
[2021-07-13 17:07] VITALS: BMI 35.9
[2021-07-15] MEDS ORDERED: BUPIVACAINE HCL/PF 0.75% 10 ML VIAL ONE (13:44)
[2021-07-15] MEDS ORDERED: IOHEXOL 180 MG/1 ML ML IJ ONE (14:21)
[2021-07-15] MEDS ORDERED: LIDOCAINE HCL 1% PRESERVATIVE FREE - 30ML VIAL IJ ONE (14:22)
[2021-07-15] MEDS ORDERED: BUPIVACAINE HCL/PF 0.75% 10 ML VIAL MM ONE (14:29)
[2021-07-15 16:19] VITALS: BP 150/80; PULSE 70; TEMP 98.6
== END 2021-07-15 15:15 | disposition home or self-care (01) ==
LOC: JASU-SURG 04:18
PROVIDERS: ATTEND Pain Medicine Pain Medicine
PROC: BR16YZZ Fluoroscopy of Lumbar Facet Joint(s) using Other Contrast (ICD-10-PCS; 2021-07-15)
PROC: 3E0T3BZ Introduction of Anesthetic Agent into Peripheral Nerves and Plexi, Percutaneous Approach (ICD-10-PCS; principal; 2021-07-15 13:30)
DX: M47.816 Spondylosis without myelopathy or radiculopathy, lumbar region (principal)
CPT/HCPCS: 76000-TC-FY

== ENCOUNTER 2021-08-05 05:18 | Day surgery (SDC) | payer OTHER ==
[2021-08-03 11:02] VITALS: BMI 35.9
[2021-08-05] MEDS ORDERED: LIDOCAINE HCL/PF 1% SDV 5ML VIAL ONE (07:20)
[2021-08-05] MEDS ORDERED: BUPIVACAINE HCL/PF 0.75% 10 ML VIAL ONE (07:20)
[2021-08-05] MEDS ORDERED: IOHEXOL 180 MG/1 ML ML IJ ONE (09:34)
[2021-08-05] MEDS ORDERED: LIDOCAINE HCL 1% PRESERVATIVE FREE - 30ML VIAL IJ ONE ×2 (09:35→09:40)
[2021-08-05] MEDS ORDERED: BUPIVACAINE HCL/PF 0.75% 10 ML VIAL NR ONE ×3 (09:36→09:48)
[2021-08-05 11:19] VITALS: BP 156/84; PULSE 72; TEMP 98.2
== END 2021-08-05 10:35 | disposition home or self-care (01) ==
LOC: JASU-SURG 05:18
PROVIDERS: ATTEND Pain Medicine Pain Medicine
PROC: 3E0T33Z Introduction of Anti-inflammatory into Peripheral Nerves and Plexi, Percutaneous Approach (ICD-10-PCS; 2021-08-05)
PROC: 3E0T3BZ Introduction of Anesthetic Agent into Peripheral Nerves and Plexi, Percutaneous Approach (ICD-10-PCS; principal; 2021-08-05 09:00)
DX: M47.816 Spondylosis without myelopathy or radiculopathy, lumbar region (principal)
CPT/HCPCS: 76000-TC-FY

== ENCOUNTER 2023-03-18 15:00 | Emergency (ER) | payer OTHER ==
[2023-03-18 15:18] VITALS: BP 158/84; PULSE 77; RESP 20; TEMP 98.6; BMI 35.9
== END 2023-03-18 20:20 | disposition home or self-care (01) ==
LOC: JER 15:00
DX: M79.671 Pain in right foot (principal); R20.2 Paresthesia of skin; M77.31 Calcaneal spur, right foot; L53.9 Erythematous condition, unspecified
CPT/HCPCS: 76882-TC-RT-FY; 82962; 99284-25

== ENCOUNTER 2023-06-16 17:13 | Emergency (ER) | payer OTHER ==
[2023-06-16 17:17] VITALS: BP 164/77; PULSE 95; RESP 18; TEMP 98.1; BMI 35.2
== END 2023-06-16 19:04 | disposition left against medical advice (07) ==
LOC: JER 17:13 → JERFT 17:13
DX: S30.1XXA Contusion of abdominal wall, initial encounter (principal); X58.XXXA Exposure to other specified factors, initial encounter
CPT/HCPCS: 99281-25

== ENCOUNTER 2023-08-20 02:40 | Inpatient (IN) | payer OTHER ==
[2023-08-20 02:54] VITALS: BMI 35.2
[2023-08-20] MEDS ORDERED: DEXAMETHASONE 4 MG TABLET (FP) PO ONE (03:27)
[2023-08-20] MEDS ORDERED: DEXAMETHASONE 4 MG TABLET (FP) ONE (03:42)
[2023-08-20 04:09] LABS: BASO % 0.4 % (0-2.0); EOS % 1.6 % (0-4.5); HEMATOCRIT 44.2 % (35.4-49); HEMOGLOBIN 14.6 GM/dL (11.7-16.9); LYMPH % 11.7 % (8-40); MCH 28.4 pg (25.7-33.7); MEAN PLT VOLUME 7.1 fl (7.5-11.1); MONO % 8.2 % (3.8-10.2); NEUT % 78.1 % (42.8-82.8); PLATELET COUNT 588 10^3/uL (134-434); RBC 5.14 M/mm3 (4.00-5.60); RDW 14.6 % (11.9-15.9)
[2023-08-20 04:27] LABS: POTASSIUM 4.1 mmol/L (3.5-5.1)
[2023-08-20 04:29] LABS: CALCIUM 9.1 mg/dL (8.5-10.1)
[2023-08-20 04:30] LABS: ALBUMIN 3.8 g/dl (3.4-5.0); BLOOD UREA NITROGEN 20.2 mg/dL (7-18)
[2023-08-20 04:35] LABS: BILIRUBIN,TOTAL 0.4 mg/dL (0.2-1); TOT PROT 7.8 g/dl (6.4-8.2)
[2023-08-20 05:58] VITALS: BP 168/91; PULSE 105; RESP 20; TEMP 99.3
[2023-08-20] MEDS ORDERED: INSULIN SLIDING SCALE (NOVOLOG) 1 VIAL SQ SCH (07:00)
[2023-08-20] MEDS ORDERED: REMDESIVIR 200 MG in SODIUM CHLORIDE 250 ML IVPB ONE (07:00)
[2023-08-20] MEDS ORDERED: TAMSULOSIN HCL 0.4 MG CAP PO SCH (08:30)
[2023-08-20] MEDS ORDERED: LISINOPRIL 10 MG TABLET PO SCH (10:00)
[2023-08-20] MEDS ORDERED: DEXAMETHASONE 4 MG TABLET (FP) PO SCH (10:00)
[2023-08-20] MEDS ORDERED: ENOXAPARIN NA (PORCINE) 40 MG/0.4 ML DISP.SYRIN SQ SCH (10:00)
[2023-08-20] MEDS ORDERED: amLODIPine BESYLATE 10 MG TABLET (FP) PO SCH (10:00)
[2023-08-20] MEDS ORDERED: LISINOPRIL 20 MG, LISINOPRIL 10 MG PO SCH (10:00)
[2023-08-20] MEDS ORDERED: traZODone HCL 100 MG TABLET (FP) PO SCH (22:00)
[2023-08-21] MEDS ORDERED: REMDESIVIR 100 MG in SODIUM CHLORIDE 250 ML IVPB SCH (10:00)
== END 2023-08-20 07:05 | disposition left against medical advice (07) | DRG 179 ==
LOC: JER 02:40 → JERBED 05:22
PROVIDERS: ADMIT Internal Medicine; ATTEND Internal Medicine
PROC: XW033E5 Introduction of Remdesivir Anti-infective into Peripheral Vein, Percutaneous Approach, New Technology Group 5 (ICD-10-PCS; principal; 2023-08-20)
DX: U07.1 COVID-19 (principal); N40.0 Benign prostatic hyperplasia without lower urinary tract symptoms; E11.9 Type 2 diabetes mellitus without complications; K57.90 Diverticulosis of intestine, part unspecified, without perforation or abscess without bleeding; R50.9 Fever, unspecified; F32.A Depression, unspecified; I10 Essential (primary) hypertension; E78.5 Hyperlipidemia, unspecified
CPT/HCPCS: 0241U-QW; 36415; 71045-TC-FY; 80053; 83036; 83880; 84484; 85025; 93005; 93010; 99285-25